=== PATIENT | female | born 1975 | race Caucasian/White ===

== ENCOUNTER 2020-02-04 00:30 | Outpatient (CLI) | payer OTHER, SELFPAY ==
[2020-02-04 18:51] LABS: SARS-CoV-2 RNA PCR Negative
== END 2020-02-04 00:31 | disposition home or self-care (01) ==
LOC: ANHCOVIDDT 00:30
PROVIDERS: PCP Family Medicine; Visit Provider Obstetrics & Gynecology
DX: Z01.818 Encounter for other preprocedural examination (principal); Z20.828 Contact with and (suspected) exposure to other viral communicable diseases
CPT/HCPCS: 87635; C9803; U0003

== ENCOUNTER 2020-02-04 14:45 | Outpatient (CLI) | payer OTHER, SELFPAY ==
--- NOTE | 2020-02-04 14:48 | ECG_ITS ---
Measurements Intervals King Rate: 78 P: 46 PA: 137 QRS: 16 QRSD: 80 T: 15 QT: 374 QTc: 427 Interpretive Statements SINUS RHYTHM RSR' IN V1 OR V2, PROBABLY NORMAL VARIANT BASELINE ARTIFACT- I, II, AVR, AVL, AVF BORDERLINE ECG Electronically Signed On 02-04-2020 15:09:08 PANTOGRAPH TRANSFERRER by Jerardo Fu D.O.
[2020-02-04 15:09] LABS: Basophils Absolute Auto 0.1 K/mm3 (0.0-0.1); Eosinophils Absolute Auto 0.4 K/mm3 (0-0.3); Eosinophils Percent Auto 4.1 % (0-4.4); Hematocrit 37.7 % (37.0-47.0); Hemoglobin 11.9 g/dL (12.0-15.0); Immature Granulocyte Absolute 0.03 K/mm3 (0.00-0.031); Immature Granulocyte Percent A 0.3 % (0-0.5); Lymphocytes Absolute Auto 2.35 K/mm3 (0.9-3.2); Lymphocytes Percent Auto 27.2 % (18.3-44.2); Mean Corpuscular HGB Conc 31.6 g/dl (32-36); Mean Corpuscular Hemoglobin 27.4 pg (26-34); Mean Corpuscular Volume 86.9 fl (80-100); Mean Platelet Volume 10.5 fl (7.4-10.4); Monocytes Absolute Auto 0.8 K/mm3 (0.1-0.6); Monocytes Percent Auto 9.1 % (2.6-8.5); Neutrophils Percent Auto 58.3 % (45.5-73.1); Platelet Count Result 306 k/mm3 (150-375); Red Blood Count 4.34 M/mm3 (4.2-5.4); White Blood Count 8.6 K/mm3 (4.5-10.0)
== END 2020-02-04 14:46 | disposition home or self-care (01) ==
LOC: ANHSURGERY 14:48
PROVIDERS: PCP Family Medicine; Visit Provider Obstetrics & Gynecology
DX: N81.4 Uterovaginal prolapse, unspecified (principal); I10 Essential (primary) hypertension; Z01.818 Encounter for other preprocedural examination; R94.31 Abnormal electrocardiogram [ECG] [EKG]
CPT/HCPCS: 36415; 85025; 86850; 86900; 86901; 93005

== ENCOUNTER 2020-02-07 00:44 | Day surgery (SDC) | payer OTHER, SELFPAY ==
[2020-01-31 16:59] VITALS: BMI 32.5
--- NOTE | 2020-02-05 09:51 | PM.IMHP ---
H&P: HPI History of Present Illness Date/Time: 02/05/20 09:51 Chief complaint: Uterine Prolapse/ Pelvic Pain/ Enlarged Uterus Narrative: Snehal Guevara is a 44 year old female was admitted for robotic total vaginal hysterectomy and bilateral salpingectomy. She has an enlarged uterus with uterine prolapse and pelvic pain. Risks and benefits reviewed including but not exclusive of , aspiration pneumonia, bleeding, transfusion, perforation injury to bowel, bladder, ureters, or other internal organs with need for open laparotomy and repair. She received the ACOG handout entitled hysterectomy as well as the de Palak handout. She had all questions answered. She asked to proceed Review of Systems Review of Systems: All systems reviewed & are unremarkable except as noted in HPI and below PMFSH Social History Social History Smoking status: Never smoker Second hand tobacco smoke exposure: No Spiritual care concerns: No Meds Home Medications and Allergies Home Medications Medication Instructions Recorded Confirmed Type lisinopril 10 mg PO DAILY 01/31/20 01/31/20 History venlafaxine 75 mg PO DAILY 01/31/20 01/31/20 History Allergies Allergy/AdvReac Type Severity Reaction Status Date / Time No Known Allergies Allergy Unverified 01/31/20 16:37 Exam Const: General: no acute distress Eyes: General: appearance normal, both eyes and all related structures Neck: Neck: supple and no JVD Thyroid: thyroid normal Resp: Effort & Inspection: normal respiratory effort Auscultation: clear to auscultation bilaterally Cardio: Rate: regular rate Rhythm: regular rhythm GI: Inspection: non-distended GI Palp: Yes Soft to palpation, No Tenderness to palpation present (GI) and No Guarding due to palpation present (GI) Auscultation: normal bowel sounds : General: Yes bladder normal to inspection External Female Exam: normal external appearance Speculum Exam - Vagina: normal appearance of the vagina Speculum Exam - Cervix: normal appearance of the cervix and Cervical os closed (prolapse) Bimanual exam- vagina & uterus: enlarged Bimanual Exam- Adnexa, other: no masses Skin: General skin exam: no rashes or lesions noted Extrem: General: normal to inspection and no edema Psych: Mental Status: mental status grossly normal Affect: normal affect Assessment and Plan Additional Plan impression: Uterine prolapse /enlarged uterus / pelvic pain Plan: Robotic total vaginectomy and bilateral salpingectomies
[2020-02-07] VITALS (18 sets, daily range): BP systolic 102–129; BP diastolic 49–83; PULSE 71–112; RESP 12–20; TEMP 36.2–37.4; O2SAT 94–100
--- NOTE | 2020-02-07 06:53 | WPDHPUPDATE1 ---
History and Physical Update Update Date/Time: 02/07/20 06:53 History and Physical has been reviewed, including an updated exam of the patient. There are NO changes in the patient's condition. Risks, benefits, and alternatives have been discussed and questions answered. Patient agrees to proceed with procedure.
[2020-02-07] MEDS: LACTATED RINGERS 1,000 ML 30 ML IV CONT ×3 (08:07→10:45)
[2020-02-07] MEDS: KETOROLAC 15 MG/ML VIAL (*BKC) IV PUSH (08:08)
[2020-02-07] MEDS: ACETAMINOPHEN 500 MG TABLET 1000 MG PO (08:09)
--- NOTE | 2020-02-07 08:17 | P.PNAN_ITS ---
Anes - Initial Pre Proc Eval Procedure: Operation Date: 02/07/20 09:30 Proposed Procedures p Robotic Assisted Total Vaginal Hysterectomy, Bilateral Salpingectomy - Ayden Villagomez MD Date/Time: 02/07/20 08:17 Surgeon: Ayden Villagomez MD Pre Op Diagnosis: Uterine Prolapse/ Pelvic Pain/ Enlarged Uterus Patient Data Age: 44 Gender: F Height: 5 ft 9 in Weight: 100 kg Last Vital Signs Temp 97.8 F 02/07/20 07:55 Pulse 92 02/07/20 07:55 Resp 16 02/07/20 07:55 BP 129/68 02/07/20 07:55 Pulse Ox 100 02/07/20 07:55 Allergies Allergy/AdvReac Type Severity Reaction Status Date / Time No Known Allergies Allergy Verified 02/07/20 07:40 Home Medications Medication Instructions Recorded Confirmed Type lisinopril 10 mg PO DAILY 01/31/20 02/07/20 History venlafaxine 75 mg PO DAILY 01/31/20 02/07/20 History hydrocodone-acetaminophen [[place]] 1 tablet PO Q4H PRN #30 tablet 02/07/20 Rx Patient hx anesthesia problems: none Family hx anesthesia problems: none PMFSH Past Medical History Medical History (Updated 02/07/20 @ 08:17 by Jayme Inman MD) Anxiety Hypertension Social History Social History Smoking status: Never smoker Second hand tobacco smoke exposure: No Living arrangements: with family Spiritual care concerns: No Anes - Eval Final PreProcedure Day of Procedure 02/07/20 08:17 Patient weight: overweight Heart: regular rate and rhythm Lungs: clear to auscultation Airway: Mallampati scale class II Neurological: alert and oriented Last oral intake: >/= 8 hours ASA classification: II Emergent: no Anesthetic plan: proceed Anesthesia type and monitoring: general ETT and standard monitoring Informed Consent: The patient's anesthetic plan and its attendant risks and benefits were discussed with the patient/family/POA. Questions were solicited and answers provided to the satisfaction of the patient/family/POA.
[2020-02-07] MEDS: ceFAZolin 2 GM/D5W 50 ML 2 GM/50 ML BAG IVPB (08:55)
--- NOTE | 2020-02-07 09:55 | P.OP_ITS ---
Procedure Note - Detailed Date of procedure: 02/07/20 Pre-op diagnosis: Uterine Prolapse/ Pelvic Pain/ Enlarged Uterus Surgeon: Ayden Villagomez MD Postop diagnosis: Uterine prolapse/pelvic pain/enlarged uterus Procedure: Robotic total vaginal hysterectomy and bilateral salpingectomies Anesthesia: General endotracheal EBL: 25cc Findings: Enlarged uterus. Normal-appearing ovaries. Tubes status post tubal ligation. Complications: None Description of procedure: The patient was prepped and draped in the normal sterile fashion and placed in the dorsal lithotomy position. Under excellent general endotracheal anesthesia weighted speculum was placed in posterior fornix of vagina. Anterior lip of the cervix grasped with a single-tooth tenaculum and the uterus sounded to 10cm. Serial dilatation with fragmented dilators performed. This was followed by passage of the 8. MANSOOR and the 3. Cold cup. Next the 16 Urdu catheter was placed. The remainder the instruments removed from the vagina. The gloves were changed. A supraumbilical incision made in the Veress needle passed in the abdomen. The abdomen filled with CO2 gas [id number]. The 8mm trocar advanced in the abdomen in the downside visualized. No injury seen the gas was reattached. The patient placed in Trendelenburg. Right left lateral quadrant incisions were made. The 8mm trocars were advanced under direct visualization assuring no injury. A right upper quadrant incision made and the 10mm trocar advanced under direct visualization assuring no injury. The robot was docked. Attention was turned to the middle school guidance counselor. The left round ligament was grasped, burned, cut. Anteriorly a bladder flap was formed by sharply dissecting the bladder away from the uterus in a caudal fashion to the opposite round ligament which was clamped, burned, cut. Next the fallopian tube on the left was dissected away from the ovary and brought to the level of its entrance in the uterus. This was repeated to remove the right tube. Next the left utero- ovarian ligament was skeletonized. This was clamped, burned, cut. This was brought to the level of previously cut round ligament. In like fashion the right utero-ovarian ligament was clamped, burned, cut and brought to the level of previously cut round ligament thus conserving the right ovary. The left cardinal and broad ligaments were serially skeletonized by sharply dissecting clamping cutting and burning down to the uterine vessels which were then individually clamped, burned, cut. In like fashion the cardinal and broad ligaments on the right were serially skeletonized. These were clamped, burned, cut. And brought to the level these were then brought to the level of the previously cut area. Uterine vessels were large tortuous as seen on the other side in the were individually clamped, burned, cut. Blanching the uterus was seen. A colpotomy incision was made and the uterus and cervix and tubes removed through the vagina. Blood loss estimated 25cc. The vagina was closed with running 0V lock from lateral edge to lateral edge and back to the midline. Irrigation undertaken to clear. The raw area was then sprinkled with [place] urine. Hemostasis was assured. The robot was undocked. The gas removed from the abdomen. The trocars removed from the abdomen. The incisions closed with 4 Monocryl glue. The patient was awakened. She went to recovery in satisfactory condition. All sponge, needle, instrument counts were correct. There were no immediate complications
[2020-02-07] MEDS: fentaNYL CITRATE INJ (*CRX) 100 MCG/2 ML VIAL 25 MCG IV PUSH ×10 (10:30→11:24)
--- NOTE | 2020-02-07 11:33 | PC.NURSE ---
This patient, Snehal Guevara, was received from nurse on 02/07/20 at 1133. Patient/family oriented to unit policies and routines
[2020-02-07] MEDS: DEXTROSE 5%/LACTATED RINGERS 1,000 ML 125 ML IV CONT (11:54)
[2020-02-07] MEDS: MORPHINE SULFATE (*CRX) 4 MG/ML INJ IV PUSH ×2 (11:55→16:16)
[2020-02-07] MEDS: KETOROLAC 30 MG/ML VIAL (*BKC) IV PUSH (14:16)
[2020-02-07] MEDS: DOCUSATE SODIUM 100 MG CAPSULE PO (16:16)
[2020-02-07] MEDS: HYDROcodone/acetaminophen (*CRX) 10-325 MG TABLET 1 TAB PO (19:33)
[2020-02-07] MEDS: IBUPROFEN 600 MG TABLET PO (19:34)
[2020-02-08] VITALS: BP 106/65; PULSE 89; RESP 18; TEMP 36.8; O2SAT 96
[2020-02-08] MEDS: HYDROcodone/acetaminophen (*CRX) 10-325 MG TABLET 1 TAB PO (00:49)
[2020-02-08] MEDS: HYDROcodone/acetaminophen (*CRX) 5-325 MG TABLET 1 TAB PO ×2 (05:32→08:09)
[2020-02-08] MEDS: IBUPROFEN 600 MG TABLET PO (05:33)
[2020-02-08 05:58] VITALS: BP 118/71; PULSE 100; RESP 18; TEMP 36.4; O2SAT 100
[2020-02-08 06:23] LABS: Basophils Absolute Auto 0.1 K/mm3 (0.0-0.1); Basophils Percent Auto 0.7 % (0.2-1.2); Eosinophils Absolute Auto 0.1 K/mm3 (0-0.3); Eosinophils Percent Auto 0.6 % (0-4.4); Hematocrit 30.6 % (37.0-47.0); Hemoglobin 9.7 g/dL (12.0-15.0); Immature Granulocyte Absolute 0.04 K/mm3 (0.00-0.031); Immature Granulocyte Percent A 0.4 % (0-0.5); Lymphocytes Absolute Auto 1.82 K/mm3 (0.9-3.2); Lymphocytes Percent Auto 20.2 % (18.3-44.2); Mean Corpuscular HGB Conc 31.7 g/dl (32-36); Mean Corpuscular Hemoglobin 27.9 pg (26-34); Mean Corpuscular Volume 87.9 fl (80-100); Mean Platelet Volume 10.8 fl (7.4-10.4); Monocytes Absolute Auto 0.8 K/mm3 (0.1-0.6); Monocytes Percent Auto 8.9 % (2.6-8.5); Neutrophils Absolute Auto 6.2 K/mm3 (1.3-6.7); Neutrophils Percent Auto 69.2 % (45.5-73.1); Platelet Count Result 248 k/mm3 (150-375); Red Blood Count 3.48 M/mm3 (4.2-5.4); Red Cell Distribution Width 14.1 % (11.5-14.5)
[2020-02-08 08:00] VITALS: BP 115/75; PULSE 95; RESP 18; TEMP 36.8; O2SAT 100
[2020-02-08] MEDS: DOCUSATE SODIUM 100 MG CAPSULE PO (08:08)
[2020-02-08] MEDS: ENOXAPARIN 40 MG/0.4 ML SYRINGE SUB-Q (08:09)
--- NOTE | 2020-02-08 09:16 | PM.GYNPNOP ---
COIN MACHINE COLLECTOR - A/P Postoperative Procedures: Procedures Operation Date: 02/07/20 09:30 Actual Procedures Side Surgeon p Robotic Assisted Total Vaginal Hysterectomy, Bilateral Salpingectomy Ayden Villagomez MD Time Spent With Patient Time with patient: less than 15 minutes COIN MACHINE COLLECTOR- PN:Subj Post-Op Subjective Date/time seen: 02/08/20 09:16 Interval history: Pain OK. Tolerating diet. Voiding. Would like to go home. Exam Narrative: Exam Narrative: AVSS I/O OK ABD soft, nontender. Incisions c/d/i. EXT nontender COIN MACHINE COLLECTOR - PN: Obj Data Vital Signs Vital Signs: Vital Signs - 24 hr 02/07/20 10:05 02/07/20 10:15 02/07/20 10:30 Temperature 36.2 C L Pulse Rate 78 86 74 Respiratory Rate 12 20 12 Blood Pressure 112/52 L 108/55 L 115/62 Pulse Oximetry 100 100 97 02/07/20 10:45 02/07/20 11:00 02/07/20 11:15 Temperature Pulse Rate 71 91 94 Respiratory Rate 12 12 13 Blood Pressure 117/83 103/51 L 103/65 Pulse Oximetry 96 96 95 02/07/20 11:21 02/07/20 11:46 02/07/20 12:00 Temperature 37.2 C Pulse Rate 72 73 81 Respiratory Rate 13 18 18 Blood Pressure 109/52 L 102/49 L 105/53 L Pulse Oximetry 99 100 100 02/07/20 12:15 02/07/20 12:30 02/07/20 13:00 Temperature 36.7 C Pulse Rate 79 96 82 Respiratory Rate 18 18 18 Blood Pressure 104/49 L 104/51 L 109/58 L Pulse Oximetry 94 94 97 02/07/20 13:30 02/07/20 14:00 02/07/20 15:00 Temperature 37.3 C Pulse Rate 84 92 98 Respiratory Rate 18 18 18 Blood Pressure 105/59 L 109/60 116/64 Pulse Oximetry 96 98 99 02/07/20 16:00 02/07/20 19:55 02/08/20 00:00 Temperature 37.4 C 36.2 C L 36.8 C Pulse Rate 92 112 H 89 Respiratory Rate 16 16 18 Blood Pressure 103/58 L 114/58 L 106/65 Pulse Oximetry 97 96 96 02/08/20 05:58 Temperature 36.4 C L Pulse Rate 100 Respiratory Rate 18 Blood Pressure 118/71 Pulse Oximetry 100 Intake/Output Intake/Output: Intake & Output 02/05/20 02/06/20 02/07/20 02/08/20 23:59 23:59 23:59 23:59 Intake Total 3524 800 Output Total 475 2500 Balance 3049 -1700 Meds/Results Medications: Active Medications Generic Name Dose Route Start Last Admin Trade Name Freq PRN Reason Stop Dose Admin Hydrocodone Bitart/Acetaminophen 1 tab 02/07/20 11:25 02/08/20 08:09 Hydrocodone/Acetaminophen (*Crx) 5-325 Mg Tablet PO 1 tab Q3H PRN Administration Pain Rated 5 or Less Hydrocodone Bitart/Acetaminophen 1 tab 02/07/20 11:25 02/08/20 00:49 Hydrocodone/Acetaminophen (*Crx) 10-325 Mg Tablet PO 1 tab Q3H PRN Administration Pain Rated 6 or Greater Docusate Sodium 100 mg 02/07/20 17:00 02/08/20 08:08 Docusate Sodium 100 Mg Capsule PO 100 mg BID JENNIE Administration Enoxaparin Sodium 40 mg 02/08/20 09:00 02/08/20 08:09 Enoxaparin 40 Mg/0.4 Ml Syringe SUB-Q 40 mg DAILY JENNIE Administration Dextrose/Lactated Ringer's 1,000 mls @ 125 mls/hr 02/07/20 11:25 02/08/20 04:13 Dextrose 5%/Lactated Ringers IV CONT Not Given .Q8H JENNIE Ibuprofen 600 mg 02/07/20 11:25 02/08/20 05:33 Ibuprofen 600 Mg Tablet PO 600 mg Q6H PRN Administration Cramping Ketorolac Tromethamine 30 mg 02/07/20 11:25 02/07/20 14:16 Ketorolac 30 Mg/Ml Vial (*Bkc) IV PUSH 02/12/20 11:26 30 mg Q6H PRN Administration Pain Rated 4-6 Morphine Sulfate 4 mg 02/07/20 11:25 02/07/20 16:16 Morphine Sulfate (*Crx) 4 Mg/Ml Inj IV PUSH 4 mg Q4H PRN Administration Severe breakthrough pain Naloxone HCl 0.1 mg 02/07/20 11:25 Naloxone Hcl 0.4 Mg/Ml Vial IV PUSH Q2M PRN Respiratory rate less than 10 Ondansetron HCl 4 mg 02/07/20 11:25 Ondansetron Inj 4 Mg/2 Ml Vial IV PUSH Q6H PRN Nausea And Vomiting Simethicone 80 mg 02/07/20 11:25 Simethicone 80 Mg Tab.Chew PO Q2H PRN Gas Labs CBC & Chem 7: 02/08/20 05:32 Labs: Laboratory Results - last 24 hr 02/08/20 05:32 WBC 9.0 RBC 3.48 L Hgb 9.7 L
--- NOTE | 2020-02-08 09:18 | PM.DS ---
DS: Admitting Diagnosis Admitting Diagnosis Admitting Diagnosis: Uterine Prolapse/ Pelvic Pain/ Enlarged Uterus DS: Discharge Diagnosis Discharge Diagnosis (1) Status post robot-assisted surgical procedure: Code(s): Z98.890 - Other specified postprocedural states Status: Acute DS: Data Data Completed and Pending Pending studies at discharge: Pending at discharge 02/07/20 09:20 Surgical [PTH] Routine Labs on day of discharge: Labs from last 24 hours 02/08/20 05:32 WBC 9.0 RBC 3.48 L Hgb 9.7 L Hct 30.6 L MCV 87.9 MCH 27.9 MCHC 31.7 L RDW 14.1 Plt Count 248 MPV 10.8 H Immature Gran % (Auto) 0.4 Neut % (Auto) 69.2 Lymph % (Auto) 20.2 [place] % (Auto) 8.9 H Eos % (Auto) 0.6 Baso % (Auto) 0.7 Lymph # (Auto) 1.82 [place] # (Auto) 0.8 H Eos # (Auto) 0.1 Baso # (Auto) 0.1 Abs Immat Gran (auto) 0.04 H Absolute Neuts (auto) 6.2 Absolute Nucleated RBC 0.0 Nucleated RBC % 0.0 Discharge Plan Discharge Patient Disposition: Home, Self-Care Patient Instructions: Laparoscopic Hysterectomy (DC) Stand Alone Forms: General Discharge Instructions Follow-up/Referrals: Ayden Villagomez MD [Physician] - Discharge Medications: New hydrocodone-acetaminophen [[place]] 5-325 mg tablet 1 tablet PO Q4H PRN (Reason: pain) Qty: 30 RF: 0 No Action venlafaxine 75 mg capsule,extended release 24hr 75 mg PO DAILY RF: 0 lisinopril 10 mg tablet 10 mg PO DAILY RF: 0
== END 2020-02-08 10:28 | disposition home or self-care (01) ==
LOC: ANHSURGERY 07:34 → ANHOB2 11:27
PROVIDERS: PCP Family Medicine; Visit Provider Obstetrics & Gynecology
PROC: (CPT 58552; principal; 2020-02-07 09:30)
DX: N81.4 Uterovaginal prolapse, unspecified (principal); R10.2 Pelvic and perineal pain; N80.0 Endometriosis of uterus; N70.11 Chronic salpingitis; N83.8 Other noninflammatory disorders of ovary, fallopian tube and broad ligament; Z23 Encounter for immunization; I10 Essential (primary) hypertension; F41.9 Anxiety disorder, unspecified
CPT/HCPCS: 58552; S2900; 36415; 85025; 88307; 90471; 90653; 99199; A9270; G0008; J0690; J1100; J1170; J1650; J1885; J2250; J2270; J2405; J2704; J2710; J3010; J7030; J7120; J7121

== ENCOUNTER 2024-12-25 15:23 | Outpatient (CLI) | payer OTHER, SELFPAY ==
--- OUTSIDE RECORDS SUMMARY | 2023-12-01 03:30 | XMS_ITS ---
Author Organization [facility] Address [address] [place] [address] Care Team Providers Care Senior Project Controls Specialist Name Role Phone Nancy ARRIETA, Mary Primary Care Provider Unavaildonald KIM MD, ADVID Unavailable REASON FOR VISIT Colon Encounters Encounter Location Date Provider Diagnosis [facility] [address] [place] [address] 12/01/2023 DAVID KIM Plan Of Treatment No Information Progress Notes * Sofie GUEVARAB:1975 (49 yo F)Acc No.[id number]:12/01/2023 Patient: Snehal DIXON Provider: Bertram Kim MD, FASGE :1975 A ge:48 Y S ex:Female Date:12/01/2023 [facility] Pcp:Mary Cruz MD * * Electronic signature of DREAD KIM MD, MD on 12/25/2024 at 06:25 PM EDT Sign off status: Pending * Provider: Bertram Kim MD, FASGE Date: Generated for Katia trotter/Steven/eTransmitting on: 06:25 PM EDT
--- OUTSIDE RECORDS SUMMARY | 2024-12-25 17:25 | XMS_ITS | Clinical Summary ---
Author Organization [facility] Address [address] [place] [id number] Care Team Providers Care Division Leader Name Role Phone Mary Cruz MD Primary Care Provider [phone] Dasia Mann MD Unavailable Allergies No known active allergies Medications methyldopa (ALDOMET) 250 mg tablet 9 Active venlafaxine XR (EFFEXOR-XR) 37.5 mg 24 hr capsule CURRENTLY BEING WEENED OFF 1 Active lisinopriL (PRINIVIL,ZESTR IL) 10 mg tablet 1 Active cyclobenzaprine (FLEXERIL) 10 mg tablet Take 1 tablet (10 mg total) by mouth 3 (three) times a day as needed for muscle spasms Active Active Problems Problem Noted Date Diagnosed Date Morbid obesity 11/14/2018 Encounters Date Type Department Care Team Description 12/09/2024 3:45 PM CDT - 12/09/2024 11:59 PM CDT Hospital Encounter [facility] [address] [place] [address] Hematuria, unspecified type Discharge Disposition: Discharge to home or self care 12/03/2024 2:21 PM CDT - 12/03/2024 11:59 PM CDT Hospital Encounter [facility] Pain [facility]mt [address] [place] [id number] Dasia Mann MD Bulge of lumbar disc without myelopathy (Primary Dx); Neural foraminal stenosis of lumbar spine; Radiculopathy, lumbar region Discharge Disposition: Discharge to home or self care 11/01/2024 3:53 PM CDT - 11/01/2024 11:59 PM CDT Hospital Encounter [facility] MRI [address] [place] [address] Radiculopathy, lumbar region Discharge Disposition: Discharge to home or self care 10/08/2024 10:38 AM CDT - 10/08/2024 11:59 PM CDT Hospital Encounter [facility] Breast Imaging [address] [place] [address] Encounter for screening mammogram for malignant neoplasm of breast Discharge Disposition: Discharge to home or self care from Last 3 Months Surgical History Surgery Date Site/Laterality Comments LAPAROSCOPY TUBAL LIGATION HYSTERECTOMY 12/29/2019 - 01/27/2020 partial Medical History Medical History Date Comments Obesity Hypertension Anxiety Difficulty swallowing GERD (gastroesophageal reflux disease) Family History Medical History Relation Name Comments Anxiety disorder Brother Cancer Father Diabetes Father Heart disease Father Hypertension Father Anxiety disorder Mother Chronic Pain Mother Depression Mother Hypertension Mother Obesity Mother Cancer Other grandparents Diabetes Other grandparents Heart disease Other grandparents Hypertension Other grandparents Stroke Other grandparents Breast cancer Neg Hx Ovarian cancer Neg Hx Relation Name Status Comments Brother Father Mother Other grandparents Alive Social History Tobacco Use Types Packs/Day Years Used Date Smoking Tobacco: Never Smokeless Tobacco: Never Tobacco Cessation:Counseling Given: Not Answered Alcohol Use Standard Drinks/Week Comments Not Currently 0 (1 standard drink = 0.6 oz pur e alcohol) Comments No Sex and Gender Information Value Date Recorded Sex Assigned at Not on file 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 Gender Identity Not on file Sexual Orientation Not on file Obstetrics History Para Term AB IAB SAB Ectopic Multiple Livin g Live Births 4 4 4 Date Outcome GA Total Labor Labor/2nd/3rd Weight Sex Type Anes PTL Nereida A1 A5 Name Clin Term Term Term Term Last Filed Vital Signs Vital Sign Reading Time Taken Comments Blood Pressure 132/84 12/03/2024 2:32 PM CDT Pulse 78 12/03/2024 2:32 PM CDT Temperature 36.8 C (98.3 F) 11/14/2018 9:17 AM CDT Respiratory Rate 18 12/03/2024 2:32 PM CDT Oxygen Saturation 99% 12/03/2024 2:32 PM CDT Inhaled Oxygen Concentration - - Weight 106.6 kg (235 lb 1.6 oz) 12/03/2024 2:32 PM CDT Height 172.7 cm (5' 8) 12/03/2024 2:32 PM CDT Body Mass Index 35.75 12/03/2024 2:32 PM CDT Plan of Treatment Health Maintenance Due Date Last Done Comments Colon Cancer Screening-Colonoscopy 1976 Depression Screening 1975 Hepatitis C Screening 1976 DTaP/Tdap/Td Vaccine (1 - Tdap) 02/12/1987 Hepatitis B Screening 02/12/1994 Regular Well Visit/Exam 18-64 02/12/1994 Influenza Vaccine (#1) 2024 12/17/2018 Breast Cancer Screening-Mammogram 10/08/2025 10/08/2024, 09/30/2023, 09/21/2022, Additional history exists Pneumococcal vaccine <65 Aged Out No longer eligible based on patient's age to complete this topic Procedures Procedure Name Priority Date/Time Associated Diagnosis Comments CT ABDOMEN PELVIS W CONTRAST Schedule ROLANDO, Read ROLANDO (Appt Today, Awaiting Results) 12/09/2024 4:14 PM CDT Hematuria, unspecified type MRI LUMBAR SPINE WO CONTRAST Schedule Routine, Read Routine (OP Routine) 11/01/2024 5:12 PM CDT Radiculopathy, lumbar region SCREENING MAMMOGRAM BILATERAL W PAOLO Schedule Routine, Read Routine (OP Routine) 10/08/2024 10:59 AM CDT Encounter for screening mammogram for malignant neoplasm of breast from Last 3 Months Results * CT Abdomen Pelvis W Contrast (12/09/2024 4:14 PM CDT) Anatomical Region Laterality Modality Body N/A Computed Tomogra phy 12/09/2024 8:43 PM CDT Narrative 12/09/2024 8:48 PM CDT EXAM DESCRIPTION: CT ABDOMEN PELVIS W CONTRAST REASON FOR STUDY: R31.9 Hematuria TECHNIQUE: CT scan of the abdomen and pelvis performed with intravenous and without oral contrast using helical scanning technique with dynamic intravenous contrast injection. Reconstructed coronal and sagittal MPR images reviewed. All images stored on PACS. Automated exposure control was used as a dose optimization technique for this examination. CONTRAST TYPE/DOSE: 100mL of IOVERSOL 350 MG IODINE/ML INTRAVENOUS SYRINGE injected via intravenous COMPARISON: 04/30/2019 FINDINGS: LOWER CHEST: No significant pulmonary abnormalities. No effusion. LIVER: Normal size. No identified cystic or solid masses. GALLBLADDER: No stones identified. No wall thickening or inflammatory changes. BILE DUCTS: No intrahepatic or extrahepatic ductal dilatation. SPLEEN: Normal size. No focal lesions. PANCREAS: No identified cystic or solid masses. No significant calcifications. No adjacent inflammation or peripancreatic fluid collections. Pancreatic duct not dilated. ADRENALS: Normal. KIDNEYS/URINARY TRACT: No identified significant cystic or solid masses. 3 mm nonobstructing stone lower pole right kidney. There is no evidence of hydronephrosis, but there is a 6 mm stone in the distal right ureter located just above the right ureterovesical junction on axial image 133. Symmetric enhancement. Urinary bladder is unremarkable. GI: No dilated bowel loops. No obvious wall thickening. Normal appendix. No significant diverticular disease. PERITONEUM: Trace free fluid within the pelvis. No evidence of free air. RETROPERITONEUM: No mass or adenopathy. REPRODUCTIVE: 4.4 cm x 3.3 cm septated cystic lesion on the left ovary. This finding would be better evaluated with pelvic ultrasound if clinically indicated. VASCULATURE: No abdominal aortic aneurysm. MUSCULOSKELETAL: No significant abnormality. OTHER: Small periumbilical hernia containing only fat. IMPRESSION: 1. 6 mm stone in the distal right ureter located just above the right ureterovesical junction. No evidence of hydronephrosis. 2. 3 mm nonobstructing stone right kidney. 3. 4.4 cm x 3.3 cm septated cystic lesion on the left ovary. This finding would be better evaluated with pelvic ultrasound. THIS IS AN ELECTRONICALLY VERIFIED FINAL REPORT 12/09/2024 8:48 PM - Electronically signed by Clarence Mendez M.D. KT: HAZEL Report ID: [id number] Reading Location: [id number] Procedure Note Clarence Mendez MD - 12/09/2024 EXAM DESCRIPTION: CT ABDOMEN PELVIS W CONTRAST REASON FOR STUDY: R31.9 Hematuria TECHNIQUE: CT scan of the abdomen and pelvis performed with intravenousand without oral contrast using helical scanning technique with dynamic intravenous contrast injection. Reconstructed coronal and sagittal MPRimages reviewed. All images stored on PACS. Automated exposure control was usedas a dose optimization technique for this examination. CONTRAST TYPE/DOSE: 100mL of IOVERSOL 350 MG IODINE/ML INTRAVENOUSSYRINGE injected via intravenous COMPARISON: 04/30/2019 FINDINGS: LOWER CHEST: No significant pulmonary abnormalities. Noeffusion. LIVER: Normal size. No identified cystic or solid masses. GALLBLADDER: No stones identified. No wall thickening or inflammatory changes. BILE DUCTS: No intrahepatic or extrahepatic ductal dilatation. SPLEEN: Normal size. No focal lesions. PANCREAS: No identified cystic or solid masses. No significant calcifications. No adjacent inflammation or peripancreatic fluidcollections. Pancreatic duct not dilated. ADRENALS: Normal. KIDNEYS/URINARY TRACT: No identified significant cystic or solid masses.3 mm nonobstructing stone lower pole right kidney. There is no evidence of hydronephrosis, but there is a 6 mm stone in the distal right ureterlocated just above the right ureterovesical junction on axial image 133.Symmetric enhancement. Urinary bladder is unremarkable. GI: No dilated bowel loops. No obvious wall thickening. Normalappendix. No significant diverticular disease. PERITONEUM: Trace free fluid within the pelvis. No evidence of freeair. RETROPERITONEUM: No mass or adenopathy. REPRODUCTIVE: 4.4 cm x 3.3 cm septated cystic lesion on the left ovary. This finding would be better evaluated with pelvic ultrasound ifclinically indicated. VASCULATURE: No abdominal aortic aneurysm. MUSCULOSKELETAL: No significant abnormality. OTHER: Small periumbilical hernia containing only fat. IMPRESSION: 1. 6 mm stone in the distal right ureter located just above the right ureterovesical junction. No evidence of hydronephrosis. 2. 3 mm nonobstructing stone right kidney. 3. 4.4 cm x 3.3 cm septated cystic lesion on the left ovary. Thisfinding would be better evaluated with pelvic ultrasound. THIS IS AN ELECTRONICALLY VERIFIED FINAL REPORT 12/09/2024 8:48 PM - Electronically signed by Clarence Mendez M.D. KT: HAZEL Report ID: [id number] Reading Location: [place] [address] [place] Farida Disla POLICE RADIO DISPATCHER IMG CT PROCEDURES Final Result * MRI Lumbar Spine WO Contrast (11/01/2024 5:12 PM CDT) Anatomical Region Laterality Modality Spine N/A Magnetic Resonan ce 11/04/2024 7:47 AM CDT Narrative 11/04/2024 7:52 AM CDT EXAM DESCRIPTION: MRI LUMBAR SPINE WO CONTRAST REASON FOR STUDY: radiculopathy Chronic low back pain TECHNIQUE: Sagittal and Axial imaging includes T1, T2, STIR sequences. COMPARISON: Lumbar spine radiographs dated 03/09/2023 and relevant portions of the CT abdomen and pelvis dated 04/30/2019. FINDINGS: SEGMENTATION: For the purpose dictation assumption is made for the last well-formed disc space seen on series 801, image 8 to be labeled L5-S1. In this system of nomenclature there are hypoplastic 12th ribs. Elongated left transverse process of L5 pseudo articulates with austyn sacrum. If a surgical or therapeutic intervention is considered then recommend imaging of the complete spinal axis to accurately delineate the vertebral levels. ALIGNMENT: Anterior-posterior alignment is maintained. VERTEBRAE: There is no acute compression fracture in the lumbar spine. Multilevel endplate degenerative changes with marginal spur formation, most noticeable at L5-S1. Mid to lower lumbar predominant facet arthropathy. DISC HEIGHT: Multilevel disc desiccation and height loss, most noticeable at L5-S1. HARDWARE: None in the spine. CORD/CAUDA: Conus medullaris terminates at L1. LOWER THORACIC: Incompletely imaged. No high-grade spinal canal stenosis. L1-L2: No significant disc bulge, spinal canal or neural foraminal narrowing. L2-L3: Minor disc bulge with facet arthropathy. No significant spinal canal or neural foraminal narrowing. L3-L4: Disc bulge eccentric to the left neural foramen. Bilateral facet arthropathy. No significant spinal canal or right neural foraminal narrowing. Mild left neural foraminal narrowing. L4-L5: Mild disc bulge with bilateral facet arthropathy. Flattening of the ventral thecal sac. No significant neural foraminal narrowing. L5-S1: Disc bulge with marginal spur formation. Superimposed central/left subarticular disc protrusion abuts the descending left S1 nerve root and approaches the descending right S1 nerve root. Bilateral facet arthropathy. Mild left ventral spinal canal stenosis. Mild bilateral neural foraminal narrowing. SACRUM: The S1 and S2 segment rounded T1 and T2 hyperintense signal in keeping with an intraosseous hemangioma. IMPRESSION: 1. Lumbar spine nomenclature as above. 2. Baoe-he-swetfeef lumbar degenerative changes as described. There is no high-grade spinal canal stenosis. 3. Lateral recess narrowing is most noticeable on the left at L5-S1. 4. Neural foraminal stenosis and additional findings as discussed. THIS IS AN ELECTRONICALLY VERIFIED FINAL REPORT 11/04/2024 7:52 AM - Electronically signed by Art Mcarthur D.O. AP T: Report ID: [id number] Reading Location: [place] [id number] Procedure Note Art Mcarthur, DO - 11/04/2024 EXAM DESCRIPTION: MRI LUMBAR SPINE WO CONTRAST REASON FOR STUDY: radiculopathy Chronic low back pain TECHNIQUE: Sagittal and Axial imaging includes T1, T2, STIR sequences. COMPARISON: Lumbar spine radiographs dated 03/09/2023 [address] relevant[address] of the CT abdomen and pelvis dated 04/30/2019. FINDINGS: SEGMENTATION: For the purpose dictation assumption is made forthe last well-formed disc space seen on series 801, image 8 to be labeledL5-S1. In this system of nomenclature there are hypoplastic 12th ribs. Elongated left transverse process of L5 pseudo articulates with austyn sacrum. If a surgical or therapeutic intervention is considered then recommend imagingof the complete spinal axis to accurately delineate the vertebral levels. ALIGNMENT: Anterior-posterior alignment is maintained. VERTEBRAE: There is no acute compression fracture in the lumbar spine. Multilevel endplate degenerative changes with marginal spur formation,most noticeable at L5-S1. Mid to lower lumbar predominant facet arthropathy. DISC HEIGHT: Multilevel disc desiccation and height loss, mostnoticeable at L5-S1. HARDWARE: None in the spine. CORD/CAUDA: Conus medullaris terminates at L1. LOWER THORACIC: Incompletely imaged. No high-grade spinal canalstenosis. L1-L2: No significant disc bulge, spinal canal or neural foraminalnarrowing. L2-L3: Minor disc bulge with facet arthropathy. No significant spinalcanal or neural foraminal narrowing. L3-L4: Disc bulge eccentric to the left neural foramen. Bilateral facet arthropathy. No significant spinal canal or right neural foraminalnarrowing. Mild left neural foraminal narrowing. L4-L5: Mild disc bulge with bilateral facet arthropathy. Flattening ofthe ventral thecal sac. No significant neural foraminal narrowing. L5-S1: Disc bulge with marginal spur formation. Superimposed central/left subarticular disc protrusion abuts the descending left S1 nerve root and approaches the descending right S1 nerve root. Bilateral facetarthropathy. Mild left ventral spinal canal stenosis. Mild bilateral neural foraminal narrowing. SACRUM: The S1 and S2 segment rounded T1 and T2 hyperintense signal in keeping with an intraosseous hemangioma. IMPRESSION: 1. Lumbar spine nomenclature as above. 2. Buur-hd-meskwiqw lumbar degenerative changes as described. There isno high-grade spinal canal stenosis. 3. Lateral recess narrowing is most noticeable on the left at L5-S1. 4. Neural foraminal stenosis and additional findings as discussed. THIS IS AN ELECTRONICALLY VERIFIED FINAL REPORT 11/04/2024 7:52 AM - Electronically signed by Art ANG T: Report ID: [id number] Reading Location: [id number] Mary Cruz MD IMG MRI PROCEDURES Final Resul t * Screening Mammogram Bilateral W Paolo (10/08/2024 10:59 AM CDT) Anatomical Region Laterality Modality Breast Bilateral Mammography Impressions 10/08/2024 11:52 AM CDT Bilateral No evidence of malignancy in either breast. OVERALL BI-RADS FINAL ASSESSMENT: 1 - Negative RECOMMENDATION: Recommend bilateral annual screening mammography. Narrative 10/08/2024 11:52 AM CDT EXAMINATION: Screening Mammogram Bilateral W Paolo: 10/08/2024 COMPARISON: Relevant prior studies available at the time of interpretation were reviewed, including the most recent mammogram on: 09/30/2023. TECHNIQUE: Mammography was performed with 2D and 3D digital breast tomosynthesis (DBT) images. CAD was utilized. BREAST PARENCHYMAL COMPOSITION: The breasts are almost entirely fatty. FINDINGS: Bilateral There is no suspicious mass, calcification, or architectural distortion in either breast. Mary Cruz MD IMG MAMMO PROCEDURES Final Res ult from Last 3 Months Insurance [facility] CHOICE PLUS [facility] CHOICE PLUS [facility] CHOICE PLUS Care Teams Division Leader Relationship Specialty Start Date End Date Mary Cruz MD [address] [address] PCP - General Family Medicine 10/01/18 Dasia Mann MD [address] [facility] [address] [place] [phone] Consulting Physician Pain Management 12/03/24
--- OUTSIDE RECORDS SUMMARY | 2024-12-25 17:25 | XMS_ITS | Patient Health Record ---
Author Organization [facility] Address [address] [place] [address] Care Team Providers Care Warranty Administrator Name Role Phone Nancy ARRIETA, Mary Primary Care Provider Niyah KIM MD, DAVID Unavailable Reason For Referral No Information Plan Of Treatment No Information Insurance Providers Payer Name Payer Address Payer Phone Subscriber Number Group Number Insured Name Patient Relationship to Insured Coverage Start Date Coverage End Date [facility] [employer] [address] [address] [place] [address] [id number] Snehal Guevara Self - patient is the insured
--- OUTSIDE RECORDS SUMMARY | 2024-12-25 17:25 | XMS_ITS | Clinical Summary ---
Author Organization [facility] Address [address] [place] [address] Care Team Providers Care Regional Recruiter Name Role Phone Mary Cruz MD Primary Care Provider [phone] Allergies No known active allergies Medications venlafaxine XR 75 MG 24 hr capsule 11/23/2020 Ac tive lisinopril 10 MG tablet 11/16/2020 Active Social History Tobacco Use Types Packs/Day Years Used Date Smoking Tobacco: Never Alcohol Use Standard Drinks/Week Comments Not Currently 0 (1 standard drink = 0.6 oz pur e alcohol) Comments No Sex and Gender Information Value Date Recorded Sex Assigned at Not on file Legal Sex Female 7:29 PM CDT Gender Identity Not on file Sexual Orientation Not on file Last Filed Vital Signs Vital Sign Reading Time Taken Comments Blood Pressure 134/93 11/28/2020 3:29 PM CDT Pulse 92 11/28/2020 2:07 PM CDT Temperature 36.4 C (97.6 F) 11/28/2020 2:09 PM CDT Respiratory Rate 18 11/28/2020 2:07 PM CDT Oxygen Saturation 100% 11/28/2020 2:07 PM CDT Inhaled Oxygen Concentration - - Weight 99.8 kg (220 lb) 11/28/2020 2:07 PM CDT Height 172.7 cm (5' 8) 11/28/2020 2:07 PM CDT Body Mass Index 33.45 11/28/2020 2:07 PM CDT Plan of Treatment Health Maintenance Due Date Last Done Comments Cervical Cancer Screening Pa p Smear (Age 30 to 64) Every 3 Years 1976 Colorectal Cancer Screening Colonoscopy (10 Years) 1976 Annual Physical 02/12/1979 Hepatitis C 02/12/1994 DTaP, Tdap and Td Vaccines ( 1 - Tdap) 02/12/1995 Hepatitis B Vaccines (1 of 3 - 19+ 3-dose series) 02/12/1995 Cervical Cancer Screening Pa chika with HPV Testing (Age 30 to 64) Every 5 Years 02/12/2006 Cervical Cancer Screening with HPV 02/12/2006 Mammogram Screening 2016 COVID-19 Vaccine (2 - 2024-2 6 season) 2024 05/05/2020 Influenza Adult (#1) 2024 Hepatitis A Vaccines Aged Out No long er eligible based on patient's age to complete this topic Meningococcal B Vaccine Aged Out No l onger eligible based on patient's age to complete this topic Meningococcal Vaccine Aged Out No francis emiliano eligible based on patient's age to complete this topic Pneumococcal Vaccine: Pediat rics (0 to 5 Years) and At-Risk Patients (6 to 49 Years) Aged Out No longer eligi ble based on patient's age to complete this topic RSV Immunizations Under 20 Months Aged Out No longer eligible based on patient's age to complete this topic Insurance [employer] Care Teams Regional Recruiter Relationship Specialty Start Date End Date Mary Cruz MD PCP - General 02/07/14
== END 2024-12-25 15:24 | disposition home or self-care (01) ==
LOC: ANHSURGERY 15:24
PROVIDERS: PCP Family Medicine; Visit Provider Obstetrics & Gynecology
DX: N83.202 Unspecified ovarian cyst, left side (principal)
CPT/HCPCS: 36415; 86850; 86900; 86901

== ENCOUNTER 2024-12-27 00:53 | Day surgery (SDC) | payer OTHER, SELFPAY ==
--- OUTSIDE RECORDS SUMMARY | 2023-12-01 03:30 | XMS_ITS ---
Author Organization [facility] Address [address] [place] [address] Care Team Providers Care Deputy Clerk Of Superior Court Name Role Phone Nancy ARRIETA, Mary Primary Care Provider Unavaildonald KIM MD, DAVID Unavailable [phone] REASON FOR VISIT Colon Encounters Encounter Location Date Provider Diagnosis [facility] [address] [place] [address] 12/01/2023 DAVID KIM Plan Of Treatment No Information Progress Notes * Sofie GUEVARAB:1975 (49 yo F)Acc No.[id number]:12/01/2023 Patient: Snehal DIXON Provider: Bertram Kim MD, FASGE :1975 A ge:48 Y S ex:Female Date:12/01/2023 Address: [facility] Pcp:Mary Cruz MD * * Electronic signature of DRAED KIM MD, MD on 12/27/2024 at 01:56 AM EDT Sign off status: Pending * Provider: Bertram Kim MD, FASGE Date: Generated for Katia trotter/Steven/eTransmitting on: 01:56 AM EDT
--- NOTE | 2024-12-26 16:29 | SUR.PREOP ---
[facility] has started construction of its new state of the art ER which will open Spring 2026. With this, we anticipate parking may be a challenge for some our surgical patients and families. Parking spaces are limited but are available for all Surgical, obstetrics, and ER patients sharing this lot. If you arrive and find you are having a hard time finding a parking space, please note that we understand the challenges, please drive around the hospital and park near Hospital Entrance 1. When you enter this entrance, you can ask a volunteer to direct or take you back to the surgical waiting area to check in. We appreciate everyone?s understanding of these expected challenges while we build for your future. Report to the Outpatient Waiting Room, entrance under the green pavilion located off [address], at time _0915AM__ on date _12/27/24__. Planned Procedure Time: _1115AM__.? Time changes happen often and if your time is changed the preop area will call you the afternoon before. - You and your visitor will be asked to self-screen and do not enter if you have any COVID symptoms. Please call surgeon if you need to reschedule. - A mask is optional within the hospital at this time. Patients may have clear liquids (water, carbonated beverages, clear teas, apple juice) until 3 hours prior to surgery with a maximum of 20 ounces. - No food from midnight until time of surgery and no smoking, or chewing tobacco (or any form of nicotine). No chewing gum, candy or mints. Take only the following medications with a SIP of water on the morning of surgery: ___acetaminophen 300/30 codeine tab if needed DO NOT STOP ANY OF YOUR OTHER PRESCRIPTION MEDICATIONS PRIOR TO SURGERY EXCEPT THE FOLLOWING Hold all vitamins and supplements for 3 days per anesthesiologist. Medications to discontinue per physician __none__ Date to take last dose___n/a___ Please no make-up, nail cameroonian, hairspray, perfume, deodorant, or body powder the day of surgery.? No jewelry (including any body piercings) or valuables the day of surgery, leave them at home.? Please take a shower or bath the night before, or the morning of, surgery with an antibacterial soap.? Wear comfortable, loose fitting clothing.?. - Jewelry must be removed prior to entering the operating room.? Rings and piercings that are not removed may be cut off. - The hospital will not accept responsibility for valuables.? - Please leave all valuables, including medications, at home the day of surgery. If you are going home after surgery, a licensed piledriver carpenter must drive you home.? - NO public transportation without another adult if you receive anesthesia. - We recommend that an adult stay with you for 24 hours following discharge. - We also recommend that you do not drive, make important decision, drink alcoholic beverages, or take any drugs that were not prescribed by your health care provider for at least 24 hours after your discharge time. For Pediatric surgeries, we recommend two adults accompany the child home. Follow any additional instructions given to you from your surgeon. Telephone instructions given to __Snehal___and asked if any additional questions and then verbalized understanding. Patient advised to call surgeon office or pre surgery nurse liaison [phone] if any additional questions.
[2024-12-27] VITALS (7 sets, daily range): BP systolic 126–136; BP diastolic 72–86; PULSE 78–92; RESP 12–16; TEMP 36.4–36.7; O2SAT 100
--- NOTE | ~2024-12-27 | XR_ITS ---
EXAMINATION: XR fluoroscopy no charge DATE: 12/27/2024 11:54 INDICATION: Right-sided renal stone removal TECHNIQUE: 4 fluoroscopic images of the abdomen and pelvis were obtained procedure performed by Dr. Samaniego. Radiologist was not present for the imaging or procedure. The amount of fluoroscopy time used during this procedure was 0.2 minutes. The dose area product was 0.233 mGym^2. COMPARISON: None. FINDINGS: Couple phleboliths in the inferior left and right pelvis. No definitive renal stones identified on the digital sales planner images. IMPRESSION: 1. Fluoroscopy utilized during urologic procedure. See procedure note for further detail. Reviewed, dictated and finalized at location A. IMPRESSION: 1. Fluoroscopy utilized during urologic procedure. See procedure note for furth er detail.
--- OUTSIDE RECORDS SUMMARY | 2024-12-27 00:57 | XMS_ITS | Clinical Summary ---
Author Organization [facility] Address [address] [place] [address] Care Team Providers Care Research Project Coordinator Name Role Phone Mary Cruz MD Primary Care Provider [phone] Allergies No known active allergies Medications venlafaxine [...] Insurance [employer] Care Teams Research Project Coordinator Relationship Specialty Start Date End Date Mary Cruz MD PCP - General 02/07/14
--- OUTSIDE RECORDS SUMMARY | 2024-12-27 00:57 | XMS_ITS | Clinical Summary ---
Author Organization [facility] Address [address] [place] [address] Care Team Providers Care Borough Coordinator Name Role Phone Mary Cruz MD Primary Care Provider [phone] Dasia Mann MD Unavailable Allergies No known [...] - 12/09/2024 11:59 PM CDT Hospital Encounter [facility] [address] [place] [address] Hematuria, unspecified type Discharge Disposition: Discharge to home or self care 12/03/2024 2:21 PM CDT - 12/03/2024 11:59 PM CDT Hospital Encounter [facility] Pain [facility]mt [address] [place] [address] Dasia Mann MD Bulge of lumbar disc without myelopathy (Primary Dx); Neural foraminal stenosis of lumbar spine; Radiculopathy, lumbar region Discharge Disposition: Discharge to home or self care 11/01/2024 3:53 PM CDT - 11/01/2024 11:59 PM CDT Hospital Encounter [facility] MRI [address] [place] [address] Radiculopathy, lumbar region Discharge Disposition: Discharge to home or self care 10/08/2024 10:38 AM CDT - 10/08/2024 11:59 PM CDT Hospital Encounter [facility] Breast Imaging [address] [place] [address] Encounter for screening mammogram for [...] on file Legal Sex Female 2:14 AM [employer] Gender Identity Not on file Sexual Orientation [...] Clarence Mendez M.D. KT: HAZEL Report ID: [id number] Reading Location: [id number] Procedure Note Clarence Mendez MD - 12/09/2024 [...] Clarence Mendez M.D. KT: HAZEL Report ID: [id number] Reading Location: [place] [address] us Farida Disla BREAD ICER IMG CT PROCEDURES Final Result * MRI [...] 1. Lumbar spine nomenclature as above. 2. Cuvq-rk-zhntnneh lumbar degenerative changes as described. There is no high-grade spinal canal stenosis. 3. Lateral recess narrowing is most noticeable on the left at L5-S1. 4. Neural foraminal stenosis and additional findings as discussed. THIS IS AN ELECTRONICALLY VERIFIED FINAL REPORT 11/04/2024 7:52 AM - Electronically signed by Art Mcarthur D.O. AP T: Report ID: [id number] Reading Location: [place] [address] Procedure Note Art Mcarthur, DO - 11/04/2024 [...] 1. Lumbar spine nomenclature as above. 2. Accq-de-kaghmdkf lumbar degenerative changes as described. There isno high-grade spinal canal stenosis. 3. Lateral recess narrowing is most noticeable on the left at L5-S1. 4. Neural foraminal stenosis and additional findings as discussed. THIS IS AN ELECTRONICALLY VERIFIED FINAL REPORT 11/04/2024 7:52 AM - Electronically signed by Art ANG T: Report ID: [id number] Reading Location: [id number] Mary Cruz MD IMG MRI PROCEDURES Final [...] Res ult from Last 3 Months Insurance [facility] [employer] [employer] [facility] [employer] Care Teams Borough Coordinator Relationship Specialty Start Date End Date Mary Cruz MD [address] [address] PCP - General Family Medicine 10/01/18 Dasia Mann MD [address] [facility] [address] [place] [address] Consulting Physician Pain Management 12/03/24
--- OUTSIDE RECORDS SUMMARY | 2024-12-27 00:57 | XMS_ITS | Patient Health Record ---
Author Organization [facility] Address [address] [place] [address] Care Team Providers Care Stonemason Name Role Phone Nancy ARRIETA, Mary Primary Care Provider Niyah KIM MD, DAVID Unavailable [phone] Reason For Referral No Information Plan Of Treatment No Information Insurance Providers Payer Name Payer Address Payer Phone Subscriber Number Group Number Insured Name Patient Relationship to Insured Coverage Start Date Coverage End Date [facility] [address] [address] [place] [address] [id number] Snehal Guevara Self - patient is the insured
--- NOTE | 2024-12-27 07:03 | PM.HPGS ---
History of Present Illness History of Present Illness Consent: Risks, benefits, and alternatives have been discussed and questions answered. Patient agrees to proceed with procedure. Chief complaint: Right ureteral stone Narrative: Snehal Guevara is a 49 year old female: (Kathie Hermosillo [facility]; 12/26/2024 2:25 PM) The patient is a 49 year old female who presents for evaluation of a ureteral stone. Note for Ureteral stone - TLB: :: :: 12/26/2024 Ms. Hartley is a 49-year-old female presenting for her first office visit for evaluation of right renal and ureteral stones. She was diagnosed via a CT scan on 12/09/2024 after presenting to her primary care provider with pain and hematuria. She has been on a trial of passage with tamsulosin for approximately two weeks and has not passed the stone to her knowledge. She has no prior history of kidney stones, recurrent urinary tract infections, or family history of stones. She denies being on any blood thinners or aspirin. This is her first visit with a urologist. PERTINENT LABS: - 12/26/2024 - Urinalysis negative for blood and infection - 12/05/2024 - Urine culture negative for infection PERTINENT IMAGING: - 12/09/2024 CT Abdomen/Pelvis with contrast ([facility]) - 6 mm right distal ureteral stone. 3 mm nonobstructing right renal stone. No hydronephrosis. 4.4cm x 3.3cm septated cystic lesion on the left ovary. Review of Systems Cardiovascular: Cardiovascular: Denies chest pain, Denies lightheadedness, Denies palpitations and Denies dyspnea Respiratory: Respiratory: Denies dyspnea Gastrointestinal: Gastrointestinal: Denies diarrhea, Denies nausea and Denies vomiting Genitourinary: Genitourinary: Denies hematuria and Denies dysuria Endocrine: Endocrine: Denies palpitations [facility] Past Medical History Medical History (Updated 12/27/24 @ 07:04 by Kevin Samaniego MD) Hypertension Anxiety Social History Social History Smoking status: Never smoker Second hand tobacco smoke exposure: No Alcohol intake: current Living arrangements: with family Spiritual care concerns: No Meds Home Medications and Allergies Home Medications ?Medication ?Instructions ?Recorded ?Confirmed ?Type acetaminophen 300 mg-codeine 30 mg 1 tablet PO Q6H PRN pain 12/23/24 12/26/24 History tablet tamsulosin 0.4 mg capsule 0.4 mg PO HS 12/23/24 12/26/24 History Allergies Allergy/AdvReac Type Severity Reaction Status Date / Time No Known Allergies Allergy Verified 12/26/24 16:30 Exam Const: General: no acute distress Resp: Effort & Inspection: normal respiratory effort GI: Inspection: non-distended GI Palp: No abdominal tenderness and No Guarding due to palpation present (GI) Auscultation: normal bowel sounds Assessment and Plan Assessment and plan (1) Right ureteral stone: Code(s): N20.1 - Calculus of ureter Status: Acute Assessment and Plan: Cystoscopy, right ureteroscopy with stone extraction, possible laser lithotripsy, retrograde pyelogram right ureteral stent placement
--- NOTE | 2024-12-27 07:05 | WPDHPUPDATE1 ---
History and Physical Update Update Date/Time: 12/27/24 07:05 History and Physical has been reviewed, including an updated exam of the patient. There are NO changes in the patient's condition. Risks, benefits, and alternatives have been discussed and questions answered. Patient agrees to proceed with procedure.
--- NOTE | 2024-12-27 09:49 | P.PNAN_ITS ---
Anes - Initial Pre Proc Eval Procedure: Operation Date: 12/27/24 11:15 Proposed Procedures p Cystoscopy, Right Ureteroscopy, Stone Extraction, Possible Laser Lithotripsy, Possible Right Retrograde Pyelogram, Possible Right Ureteral Stent Placement - Kevin Samaniego MD Date/Time: 12/27/24 09:49 Surgeon: Kevin Samaniego MD Pre Op Diagnosis: Right ureteral stone Patient Data Age: 49 Gender: F Height: Weight: 104.5 kg Allergies Allergy/AdvReac Type Severity Reaction Status Date / Time No Known Allergies Allergy Verified 12/26/24 16:30 Home Medications ?Medication ?Instructions ?Recorded ?Confirmed ?Type acetaminophen 300 mg-codeine 30 mg 1 tablet PO Q6H PRN pain 12/23/24 12/26/24 History tablet tamsulosin 0.4 mg capsule 0.4 mg PO HS 12/23/24 History Patient hx anesthesia problems: none Family hx anesthesia problems: none Results Review: All pre-operative results and documents have been reviewed as part of the pre- operative evaluation. [facility] Past Medical History Medical History Hypertension Anxiety Social History Social History Smoking status: Never smoker Second hand tobacco smoke exposure: No Alcohol intake: current Living arrangements: with family Spiritual care concerns: No Anes - Eval Final PreProcedure Day of Procedure 12/27/24 09:49 Patient weight: normal Heart: regular rate and rhythm Lungs: clear to auscultation Airway: Mallampati scale class II Neurological: alert and oriented Last oral intake: >/= 8 hours ASA classification: II Emergent: no Anesthetic plan: proceed Anesthesia type and monitoring: general GIVS and standard monitoring Results Review: All pre-operative results and documents have been reviewed as part of the pre- operative evaluation. Informed Consent: The patient's anesthetic plan and its attendant risks and benefits were discussed with the patient/family/POA. Questions were solicited and answers provided to the satisfaction of the patient/family/POA.
[2024-12-27] MEDS: LACTATED RINGERS 1,000 ML 30 ML IV CONT ×2 (10:17→11:52)
[2024-12-27] MEDS: ceFAZolin 2 GM in SODIUM CHLORIDE 0.9% IV 50 ML 100 ML IVPB (11:07)
--- NOTE | 2024-12-27 11:56 | S_PTH ---
PATIENT: Snehal Guevara LOC: [facility] U#:[id number] AGE/SX: 49/F ROOM: RE12/27/[address]: Kevin Samaniego MD : 1975 BED: DIS: 12/27/2024 SPEC #: [id number] RECD: 12/27/24 12:53 STATUS: AARON REQ #: [id number] XIAO: 12/27/24 11:[address]: Kevin Samaniego DEPT: [facility] Surgical RECD BY: Charlotte Billingsley ENTERED: 12/27/24 12:53 SP TYPE: Surgical OTHR DR: Mary Cruz, Tissues: A - Stone Procedures: Gross Exam Level 1 Crystalline Analysis
[2024-12-27] MEDS: oxyCODONE HCL (*CRX) 5 MG TAB IR PO (13:04)
--- NOTE | 2024-12-27 13:06 | W.PM.PROC2 ---
Procedure Note - Detailed Date of Procedure 12/27/24 Pre-op Diagnosis Right ureteral stone Post-op Diagnosis Same Procedure Performed Cystoscopy, right ureteroscopy with laser lithotripsy and stone extraction Surgeon Kevin Samaniego MD Anesthesia General Description of Procedure Patient is brought to the operative suite where she has prepped draped in routine sterile fashion while in dorsal lithotomy position after the uneventful induction of a general LMA anesthetic. Cystoscopy was undertaken with a 19 F rigid cystoscope. Bladder neck and urethra endoscopically normal. Bladder mucosa is shows no hyperemia. There is no intravesical foreign body or neoplasm. 0.035 in glidewire is advanced into her solitary right ureteral orifice. Distal ureter was dilated with an 8 F 10 F dilator. Ureteroscopy was undertaken with a short tapered semi-rigid ureteral scope. Distal ureteral stone is just large to require lithotripsy prior to extraction. Using a 200 micron Jero laser fiber I fractured into 3 pieces all of which were removed with ease. Because of the ease of this manipulation after not to place ureteral stent. Scopes & wires were removed and she was taken recovery room good condition. Drains No Pathology Yes
== END 2024-12-27 13:33 | disposition home or self-care (01) ==
PROVIDERS: PCP Family Medicine; Visit Provider Urology
PROC: (CPT 52352; principal; 2024-12-27 11:15)
DX: N20.1 Calculus of ureter (principal)
CPT/HCPCS: 52353; 82365; 88300; 99199; J0690; A9270; C1769; J3010; J7120

== ENCOUNTER 2025-01-02 01:11 | Day surgery (SDC) | payer OTHER, SELFPAY ==
--- OUTSIDE RECORDS SUMMARY | 2023-12-01 02:30 | XMS_ITS ---
Author Organization [facility] Address [address] [place] [address] Care Team Providers Care Janitor Caretaker Name Role Phone Nancy ARRIETA, Mary Primary Care Provider Unavaildonald KIM MD, DAVID Unavailable REASON FOR VISIT Colon Encounters Encounter Location Date Provider Diagnosis [facility] [address] [place] [address] 12/01/2023 DAVID KIM Plan Of Treatment No Information Progress Notes * JAVIER GregoryBereniceB:1975 (49 yo F)Acc No.[id number]:12/01/2023 Patient: Snehal DIXON Provider: Bertram Kim MD, FASGE :1975 A ge:48 Y S ex:Female Date:12/01/2023 [facility]: [facility] Pcp:Mary Cruz MD * * Electronic signature of DREAD KIM MD, MD on 01/02/2025 at 05:07 PM EST Sign off status: Pending * Provider: Bertram Kim MD, FASGE Date: Generated for Katia trotter/Steven/Tylersmitting on: 03/04/2024 05:07 PM EST
[2024-12-23 10:27] VITALS: BMI 32.5
--- NOTE | 2024-12-23 10:28 | PC.NURSE ---
[facility] has started construction of its new state of the art ER which will open Spring 2026. With this, we anticipate parking may be a challenge for some our surgical patients and families. Parking spaces are limited but are available for all Surgical, obstetrics, and ER patients sharing this lot. If you arrive and find you are having a hard time finding a parking space, please note that we understand the challenges, please drive around the hospital and park near Hospital Entrance 1. When you enter this entrance, you can ask a volunteer to direct or take you back to the surgical waiting area to check in. We appreciate everyone?s understanding of these expected challenges while we build for your future. Report to the Outpatient Waiting Room, entrance under the green pavilion located off [address], at time _0600_ on date _[id number]_. Planned Procedure Time: _0730_.? Time changes happen often and if your time is changed the preop area will call you the afternoon before. - You and your visitor will be asked to self-screen and do not enter if you have any COVID symptoms. Please call surgeon if you need to reschedule. - A mask is optional within the hospital at this time. Patients may have clear liquids (water, carbonated beverages, clear teas, apple juice) until 3 hours prior to surgery with a maximum of 20 ounces. - No food from midnight until time of surgery and no smoking, or chewing tobacco (or any form of nicotine). No chewing gum, candy or mints. Take only the following medications with a SIP of water on the morning of surgery: __Tylenol with codiene if needed for pain.____ DO NOT STOP ANY OF YOUR OTHER PRESCRIPTION MEDICATIONS PRIOR TO SURGERY EXCEPT THE FOLLOWING Hold all vitamins and supplements for 3 days per anesthesiologist. Medications to discontinue per physician Date to take last dose Please no make-up, nail persian, hairspray, perfume, deodorant, or body powder the day of surgery.? No jewelry (including any body piercings) or valuables the day of surgery, leave them at home.? Please take a shower or bath the night before, or the morning of, surgery with an antibacterial soap.? Wear comfortable, loose fitting clothing. - Jewelry must be removed prior to entering the operating room.? Rings and piercings that are not removed may be cut off. - The hospital will not accept responsibility for valuables.? - Please leave all valuables, including medications, at home the day of surgery. If you are going home after surgery, a licensed pile driver must drive you home.? - NO public transportation without another adult if you receive anesthesia. - We recommend that an adult stay with you for 24 hours following discharge. - We also recommend that you do not drive, make important decision, drink alcoholic beverages, or take any drugs that were not prescribed by your health care provider for at least 24 hours after your discharge time. Follow any additional instructions given to you from your surgeon. Telephone instructions given to __Snehal__and asked if any additional questions and then verbalized understanding. Patient advised to call surgeon office or pre surgery nurse liaison [phone] if any additional questions.
--- NOTE | 2025-01-01 07:56 | PM.IMHP ---
H&P: HPI History of Present Illness Date/Time: 01/01/25 07:56 Chief Complaint: Complex left ovarian cyst Narrative: This is a 49-year-old female admitted for cystectomy possible left salpingo-oophorectomy secondary to complex left ovarian cyst. She is status post hysterectomy and tubal ligation has a history of endometriosis she has had pain discomfort dyspareunia risks and benefits reviewed including exclusive of , aspiration, bleeding, transfusion, perforation injury to bowel, bladder, ureters, or other internal organs with need for open laparotomy. She received the ACOG handout entitled laparoscopy. She had all questions answered. She asked to proceed. Review of Systems Cardiovascular: Cardiovascular: Denies chest pain, Denies lightheadedness, Denies palpitations and Denies dyspnea Respiratory: Respiratory: Denies dyspnea Gastrointestinal: Gastrointestinal: Denies diarrhea, Denies nausea and Denies vomiting Genitourinary: Genitourinary: Denies hematuria and Denies dysuria Endocrine: Endocrine: Denies palpitations [facility] Past Medical History Medical History Hypertension Anxiety Social History Social History Smoking status: Never smoker Second hand tobacco smoke exposure: No Alcohol intake: current Living arrangements: with family Spiritual care concerns: No Meds Home Medications and Allergies Home Medications ?Medication ?Instructions ?Recorded ?Confirmed ?Type acetaminophen 300 mg-codeine 30 mg 1 tablet PO Q6H PRN pain 12/23/24 12/26/24 History tablet tamsulosin 0.4 mg capsule 0.4 mg PO HS 12/23/24 12/26/24 History hydrocodone 5 mg-acetaminophen 325 1 - 2 tablet PO Q6H PRN pain #10 12/27/24 Rx mg tablet tabs ketorolac 10 mg tablet 10 mg PO Q6H 5 days #20 tabs 12/27/24 Rx Allergies Allergy/AdvReac Type Severity Reaction Status Date / Time No Known Allergies Allergy Verified 12/27/24 10:17 Exam Const: General: cooperative, healthy appearing, comfortable and overweight Orientation/consciousness: oriented to person, oriented to place and oriented to time Resp: Effort & Inspection: normal respiratory effort Cardio: Rate: regular rate Rhythm: regular rhythm Heart sounds: S1 normal heart sound present and S2 normal heart sound present GI: Inspection: normal to inspection : External Female Exam: normal external appearance Speculum Exam - Vagina: normal appearance of the vagina Speculum Exam - Cervix: Cervix absent Bimanual exam- vagina & uterus: uterus absent Bimanual Exam- Adnexa, other: Adnexal mass present on the left tender Assessment and Plan Assessment and plan (1) Left ovarian cyst: Code(s): N83.202 - Unspecified ovarian cyst, left side Status: Acute Plan Proceed with laparoscopic left ovarian cystectomy possible left salpingo-oophorectomy
[2025-01-02] VITALS (10 sets, daily range): BP systolic 110–144; BP diastolic 59–84; PULSE 68–91; RESP 12–14; TEMP 36.2–36.3; O2SAT 94–100; BMI 33.8
--- NOTE | 2025-01-02 06:23 | WPDHPUPDATE1 ---
History and Physical Update Update Date/Time: 01/02/25 06:23 History and Physical has been reviewed, including an updated exam of the patient. There are NO changes in the patient's condition. Risks, benefits, and alternatives have been discussed and questions answered. Patient agrees to proceed with procedure.
--- NOTE | 2025-01-02 06:50 | WPDANESEPPF ---
Anes - Initial Pre Proc Eval Procedure: Operation Date: 01/02/25 07:30 Proposed Procedures p Laparoscopy Left Ovarian Cystectomy - Ayden Andrade MD Date/Time: 01/02/25 06:50 Surgeon: Ayden Andrade MD Pre Op Diagnosis: lt ovarian cyst, pelvic pain Patient Data Age: 49 Gender: F Height: 1.75 m Weight: 100 kg Allergies Allergy/AdvReac Type Severity Reaction Status Date / Time No Known Allergies Allergy Verified 01/02/25 06:47 Home Medications ?Medication ?Instructions ?Recorded ?Confirmed ?Type acetaminophen 300 mg-codeine 30 mg 1 tablet PO Q6H PRN pain 12/23/24 12/26/24 History tablet tamsulosin 0.4 mg capsule 0.4 mg PO HS 12/23/24 12/26/24 History hydrocodone 5 mg-acetaminophen 325 1 - 2 tablet PO Q6H PRN pain #10 12/27/24 Rx mg tablet tabs ketorolac 10 mg tablet 10 mg PO Q6H 5 days #20 tabs 12/27/24 Rx Patient hx anesthesia problems: none Family hx anesthesia problems: none Results Review: All pre-operative results and documents have been reviewed as part of the pre-operative evaluation. [facility] Past Medical History Medical History Hypertension Anxiety Social History Social History Smoking status: Never smoker Second hand tobacco smoke exposure: No Alcohol intake: current Living arrangements: with family Spiritual care concerns: No Anes - Eval Final PreProcedure Day of Procedure 01/02/25 06:50 Patient weight: obese Heart: regular rate and rhythm Lungs: clear to auscultation Airway: Mallampati scale class II Neurological: alert and oriented Last oral intake: >/= 8 hours ASA classification: II Emergent: no Anesthetic plan: proceed Anesthesia type and monitoring: general ETT and standard monitoring Results Review: All pre-operative results and documents have been reviewed as part of the pre-operative evaluation. Informed Consent: The patient's anesthetic plan and its attendant risks and benefits were discussed with the patient/family/POA. Questions were solicited and answers provided to the satisfaction of the patient/family/POA.
[2025-01-02] MEDS: ACETAMINOPHEN 500 MG TABLET 1000 MG PO (06:52)
[2025-01-02] MEDS: LACTATED RINGERS 1,000 ML 30 ML IV CONT ×2 (06:52→09:10)
[2025-01-02] MEDS: KETOROLAC 15 MG/ML VIAL (*BKC) IV PUSH (06:52)
--- NOTE | 2025-01-02 07:55 | S_PTH ---
PATIENT: Snehal Guevara LOC: [facility] U#:[id number] AGE/SX: 49/F ROOM: RE01/02/[address]: Ayden Andrade MD : 1975 BED: DIS: 01/02/2025 SPEC #: [id number] RECD: 01/02/25 10:09 STATUS: AARON RE #: [id number] XIAO: 01/02/25 07:[address]: Ayden Biggs DEPT: [facility] Surgical RECD BY: Charlotte Billingsley ENTERED: 01/02/25 10:10 SP TYPE: Surgical OTHR DR: Mary CruzMD Tissues: A - Ovary Procedures: Hematoxylin and Eosin Stain Gross and Microscopic Level 4
--- NOTE | 2025-01-02 08:03 | W.PM.PROC2 ---
Procedure Note - Detailed Date of Procedure 01/02/25 Pre-op Diagnosis lt ovarian cyst, pelvic pain Post-op Diagnosis Same Procedure Performed Laparoscopy with left oophorectomy and lysis of adhesions Surgeon Ayden Andrade MD Anesthesia General Indications 29-year-old female status post hysterectomy with pelvic pain and complex left ovarian cyst Findings Uterus and cervix were absent. Multiple adhesions bowel to the vaginal cuff into the left lateral sidewall complex left cyst that appeared nature. Right tubes were absent bilaterally Description of Procedure Patient was prepped and draped in the normal sterile fashion placed dorsal position. Excellent trach anesthesia a sponge stick was placed in vagina and the bladder emptied of about 2cc of clear urine. The weighted speculum gloves were changed. A supraumbilical incision made the Veress needle in the with CO2 to of mercury. Five trocar advanced direct visualization assuring injury no injury seen patient was placed in Trendelenburg and a suprapubic incision made. The 5 trocar advanced under direct visualization assuring the adhesions were noted. And the a left lower quadrant incision made 10 trocar advanced assuring using the LigaSure these were sharply dissected by burning cutting until clear complex left ovarian cyst was skeletonized cyst infundibulopelvic structure clamped burned and cut this was placed in an Endo-Catch removed through left lower irrigation undertaken until clear and hemostasis was assured. No other abnormalities were seen. Lower site. The gas removed. The upper site the incisions closed with 4 Monocryl glue. Patient was awakened went to recovery in satisfactory condition. All sponge, needle, instrument counts were correct. There were no immediate complications Estimated Blood Loss 5 Drains No Packing No Pathology Yes Complications No immediate complications Condition Stable Disposition PACU
[2025-01-02] MEDS: fentaNYL CITRATE INJ (*CRX) 100 MCG/2 ML VIAL 25 MCG IV PUSH ×6 (08:30→09:00)
[2025-01-02] MEDS: HYDROmorphone HCL INJ (*CRX) 1 MG/ML SYR 0.5 MG IV PUSH ×4 (09:09→09:26)
[2025-01-02] MEDS: oxyCODONE HCL (*CRX) 5 MG TAB IR PO (09:45)
--- OUTSIDE RECORDS SUMMARY | 2025-01-02 16:08 | XMS_ITS | Clinical Summary ---
Author Organization [facility] Address [address] [place] [address] Care Team Providers Care Power Lineman Name Role Phone Mary Cruz MD Primary Care Provider [phone] Allergies No known active allergies Medications venlafaxine [...] patient's age to complete this topic Insurance 13 [facility] [place] [id number] [facility] [employer] Care Teams Power Lineman Relationship Specialty Start Date End Date Mary Cruz MD PCP - General 02/07/14
--- OUTSIDE RECORDS SUMMARY | 2025-01-02 16:08 | XMS_ITS | Patient Health Record ---
Author Organization [facility] Address [address] [place] [address] Care Team Providers Care Head Of Business Development Name Role Phone Nancy ARRIETA, Mary Primary Care Provider Niyah KIM MD, DAVID Unavailable Reason For Referral No Information Plan Of Treatment No Information Insurance Providers Payer Name Payer Address Payer Phone Subscriber Number Group Number Insured Name Patient Relationship to Insured Coverage Start Date Coverage End Date [facility] [employer] [address] [address] [place] [address] [phone] [id number] Snehal Guevara Self - patient is the insured
--- OUTSIDE RECORDS SUMMARY | 2025-01-02 16:08 | XMS_ITS | Clinical Summary ---
Author Organization [facility] Address [address] [place] [id number] Care Team Providers Care Evaporator Operator Name Role Phone Mary Cruz MD Primary Care Provider [phone] Dasia Mann MD Unavailable Allergies No known [...] 12/09/2024 11:59 PM CDT Hospital Encounter [facility] [address] [place] [address] Hematuria, unspecified type Discharge Disposition: Discharge to home or self care 12/03/2024 2:21 PM CDT - 12/03/2024 11:59 PM CDT Hospital Encounter [facility] Pain [facility]mt [address] [place] [address] Dasia Mann MD Bulge of lumbar disc without myelopathy (Primary Dx); Neural foraminal stenosis of lumbar spine; Radiculopathy, lumbar region Discharge Disposition: Discharge to home or self care 11/01/2024 3:53 PM CDT - 11/01/2024 11:59 PM CDT Hospital Encounter [facility] MRI [address] [place] [address] Radiculopathy, lumbar region Discharge Disposition: Discharge to home or self care 10/08/2024 10:38 AM CDT - 10/08/2024 11:59 PM CDT Hospital Encounter 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 KT: HAZEL Report ID: [id number] Reading Location: [id number] Procedure Note Clarence Mendez MD - 12/09/2024 [...] Clarence Mendez M.D. KT: HAZEL Report ID: [id number] Reading Location: [place] [address] us Farida Disla APARTMENT MANAGER IMG CT PROCEDURES Final Result * MRI [...] 1. Lumbar spine nomenclature as above. 2. Wswx-jx-zviihgst lumbar degenerative changes as described. There is no high-grade spinal canal stenosis. 3. Lateral recess narrowing is most noticeable on the left at L5-S1. 4. Neural foraminal stenosis and additional findings as discussed. THIS IS AN ELECTRONICALLY VERIFIED FINAL REPORT 11/04/2024 7:52 AM - Electronically signed by Art Mcarthur D.O. AP T: Report ID: [id number] Reading Location: [place] [address] Procedure Note Art Mcarthur, DO - 11/04/2024 [...] 1. Lumbar spine nomenclature as above. 2. Itnb-cd-wmygkdix lumbar degenerative changes as described. There isno high-grade spinal canal stenosis. 3. Lateral recess narrowing is most noticeable on the left at L5-S1. 4. Neural foraminal stenosis and additional findings as discussed. THIS IS AN ELECTRONICALLY VERIFIED FINAL REPORT 11/04/2024 7:52 AM - Electronically signed by Art ANG T: Report ID: [id number] Reading Location: [id number] Mary Cruz MD IMG MRI PROCEDURES Final [...] Res ult from Last 3 Months Insurance [facility] [place] [address] [employer] [facility] CHO[facility] PLUS [facility] CHO[facility] PLUS Care Teams Evaporator Operator Relationship Specialty Start Date End Date Mary Cruz MD [address] [address] PCP - General Family Medicine 10/01/18 Dasia Mann MD [address] [facility] SONY [address] [place] [address] Consulting Physician Pain Management 12/03/24
--- OUTSIDE RECORDS SUMMARY | 2025-01-02 16:08 | XMS_ITS | Data Portability ---
Author Organization [facility] Address [address] [place] [address] Assessment No assessment recorded. Plan of Treatment Reminders Order Date Submit Date Provider Last Modified By Organization Details Last Modified Time Details Appointments None recorded. Lab PPD (purified protein derivative) , skin test 2015 016 anashPerlita In-Office Order, Internal Use Only DO Not Attach Compendium DO Not Attach Compendium, Do Not Delete/merge, [id number] 6 16:06:49 HIV (1+2) Ab, rapid, unspecified specimen 2015 016 [email or web address] In-Office Order, Internal Use Only DO Not Attach Compendium DO Not Attach Compendium, Do Not Delete/merge, [id number] 6 17:37:39 mononucleos is, heterophile Ab, blood 2015 016 eleni [facility], [address], [address], [place], [address], 6 17:37:39 CT + NG DNA, PCR, unspecified specimen 2015 016 [facility], [address], [address], [place], [address], 6 10:36:26 HPV E6+E7 mRNA, qualitative PCR, cervix 2015 016 [facility], [address], [address], [place], [address], 6 08:44:53 rapid strep group A, throat 2015 016 [facility], [address] [facility], [address], [place], [address], 6 12:09:47 BMP, blood 2014 015 [facility], [address] [place] [address], [address], [place], [address], 5 13:10:38 glycohemogl obin, total, blood 2014 015 [facility], [address] [place] [address], [address], [place], [address], 5 13:10:38 lipid panel, blood 2014 015 [facility], [address] [place] [address], [address], [place], [address], 5 13:10:38 Referral None recorded. Procedures None recorded. Surgeries None recorded. Imaging None recorded. Medication Orders Tubersol 5 tub. unit/0.1 mL intradermal injection solution 2015 016 thulsema Not available 6 15:03:18 lidocaine HCl 2 % mucosal solution 2015 016 [email or web address] Not available 6 16:32:43 Mobic 7.5 mg tablet 2014 015 hliptak Not available 6 16:49:28 baclofen 10 mg tablet 2014 015 hliptak Not available 6 16:49:28 cyclobenzap rine 10 mg tablet 2014 015 hliptak Not available 6 16:49:28 Patient TargetsNo targets recorded. Patient Instructions Encounter Date Encounter Id Patient Instructions Last Modified By Organization Details Last Modified Time 08/08/2014 [id number] I was present an d available in the Family Medicine clinic to discuss this patient's care during the appointment. I agree with the resident's assessment and plan as documented. Sidney Dominique D.O. [email or web address] Not available 09/24/2014 13:10:38 10/16/2014 [id number] I was present an d available in the Family Medicine clinic to discuss this patient's care during the appointment. I agree with the resident's assessment and plan as documented. Not available 10/22/2014 18:04:26 03/31/2015 [id number] sore throat: car e instructions Not available 04/08/2015 16:32:43 I was present an d available in the Family Medicine clinic to discuss this patient's care during the appointment. I agree with the resident's assessment and plan as documented. Not available 04/08/2015 16:32:43 04/09/2015 [id number] I was present an d available in the Family Medicine clinic to discuss this patient's care during the appointment. I agree with the resident's assessment and plan as documented. tkearney Not available 04/09/2015 17:37:40 10/23/2015 [id number] tuberculin skin test: care instructions thulsema Not available 10/26/2015 15:03:19 Reason for Referral None Reported. Results Created Date Observation Date Name Description Value Unit Range Abnormal Flag Note LastModifiedBy Organization Detail LastModifiedTime 10/26/19 16 10/26/2015 PPD (la nena fied prote in deriv ative ), skin test Result Negati ve Not Available In-Office Order Internal Use Only DO Not Attach Compendium DO Not Attach Compendium, Do Not Delete/merge, [id number] 10/26/2015 15:03:19 04/09/19 16 04/09/2015 HIV (1+2) Ab, rapid , unspe cifie d speci men Rapid HIV negati ve Not Available In-Office Order Internal Use Only DO Not Attach Compendium DO Not Attach Compendium, Do Not Delete/merge, [id number] 04/09/2015 16:31:51 03/31/19 16 03/31/2015 rapid strep group A, throa t strep gp A Ag, ia w/reflex NEGATI VE negati ve Not Available [facility] ([facility]) [address] [place], [address], 03/31/2015 14:36:23 03/31/19 16 03/31/2015 rapid strep group A, throa t beta strep gp A culture TNP TEST NOT PERFO RMED Not Available [facility] ([facility]) [address] [place], [address], 03/31/2015 14:36:23 03/31/19 16 04/02/2015 strep tococ cus sp, beta- hemol ytic, cultu re, unspe cifie d speci men beta strep gp A culture NEGATI VE Not Available [facility] ([facility]) [address] [place], [address], 04/03/2015 06:09:39 03/31/19 16 04/01/2015 rapid strep group A, throa t strep gp A Ag, ia w/reflex TNP THE SPECI MEN SUBMI TTED DOES NOT MEET THE LABOR ATORY 'S [facility]ITE [facility]IF FOR ACCEP TABIL ITY. REFER TO [facility] 'S DIREC TORY OF SERVI LAUREN FOR SPECI MEN ACCEP TABIL ITY [facility]ITE [facility]. REQUI RES: DRY SWAB RECEI TIFFANY: SWAB WITH MEDIA Not Available [facility] ([facility]) [address] [place], [address], 04/03/2015 06:09:39 03/31/19 16 04/01/2015 speci men statu s repor t specimen status report TNP THE SPECI MEN SUBMI TTED DOES NOT MEET THE LABOR ATORY 'S [facility] FOR ACCEP TABIL ITY. [facility] FOR SPECI MEN ACCEP TABIL ITY [place]ITE [place]. TEST: 11712 5 STREP GP A AG, IA W/REF DEE REQUI RES: DRY SWAB RECEI TIFFANY: SWAB WITH MEDIA Not Available [facility] ([facility]) [address] [facility], [place], [address], 04/03/2015 06:09:40 04/09/19 16 04/10/2015 heter ophil e Ab, quali tativ e latex agglu tinat ion, serum mononucleosi s test, qual NEGATI VE negati ve THE SENSI TIVIT Y OF HETER OPHIL E ANTIB LUCRECIA TESTI NG IS 80-90 %. EPSTE IN AVILA IGM TESTI NG OFFER S HIGHE R SENSI TIVIT Y. Not Available [facility] ([facility]) [address] [facility], [place], [address], 04/10/2015 10:42:37 04/09/19 16 04/09/2015 CT + NG DNA, PCR, unspe cifie d speci men please note: COMMEN T ACCEP TABLE SPECI MENS FOR THIS TEST ARE MALE URETH RAL SWAB, ENDOC ERVIC AL SWAB AND LIQUI D BASED PAP SPECI MENS, VAGIN AL SWABS IN APTIM A TRANS PORTS AND FIRST VOID URINE . SEE HILLARY GALDAMEZ OF SERVI LAUREN FOR TEST NUMBE R FOR RECTA L AND PHARY NGEAL SPECI MENS. Not Available [facility] ([facility]) [address] [facility], [place], [address], 04/13/2015 10:36:26 04/09/19 16 04/13/2015 CT + NG DNA, PCR, unspe cifie d speci men chlamydia trachomatis, YANELIS TNP NO SPECI MEN RECEI TIFFANY, PLEAS E RESUB JUAN DIEGO. Not Available [facility] ([facility]) [address] [facility], [place], [address], 04/13/2015 10:36:26 04/09/19 16 04/13/2015 CT + NG DNA, PCR, unspe cifie d speci men neisseria gonorrhoeae, YANELIS TNP TEST NOT PERFO RMED Not Available [facility] ([facility]) [address] [facility], [place], [address], 04/13/2015 10:36:26 04/09/19 16 04/13/[address] probl em request problem TNP NO SPECI MEN RECEI TIFFANY, TIN Phelan RESUB JUAN DIEGO. TEST: [id number] 4 CHLAM YDIA/ GC AMPLI FICAT ION Not Available [facility] ([facility]) [address] [facility], [place], [address], 04/13/2015 10:36:27 04/09/19 16 04/10/[address] probl em request problem TNP PLEAS E REFER TO THE FOLLO WING SPECI MEN FOR ADDIT IONAL LAB RESUL TS. TEST: 63076 0 HPV APTIM A SEE 042-3 36-07 65-0 Not Available [facility] ([facility]) [address] [facility], [place], [address], 04/13/2015 10:36:28 04/09/19 16 04/13/2015 verba l order see below: COMMEN T: THE [place] STATE S CODE OF DEBBY AL REGUL ATION S REQUI RES A WRITT EN AND EMELIA D REQUE ST BE FORWA RDED TO A LABOR ATORY FOLLO WING A VERBA L ORDER OF A LABOR ATORY TEST. TIN Phelan TAVO T US TO MEET THIS REQUI KAILAEN T AND TO COMPL ETE OUR RECOR DS. DATE: ICD- DIAGN OSIS CODE( S):__ _ PHYSI JUDITH OR AUTHO RIZED DESIG NEE:_ _ PLEAS E PRINT PHYSI JUDITH OR AUTHO RIZED DESIG NEE SIGNA JEANNINE: YOUR SIGNA TURE CONFI SHORTY YOUR ORDER OF THE TEST( S) LISTE Mirtha PLEAS E PROVI DE REQUE STED INFOR MATIO N AND FAX TO [phone] OR [phone] 12-50 24. Not Available [facility] ([facility]) [address] [place], [address], 04/27/2015 12:17:13 04/09/19 16 04/13/2015 verba l order additional test(s) requested COMMEN T: TEST( S) ADDED PER GEORGE MULLIGAN AT ACCOU NT 04-13 LOGGE D BY MARY HAGER TEST# [id number]/GC YANELIS, PHARY NGEAL DIAGN OSIS CODES PROVI DED R59.0 Not Available [facility] ([facility]) [address] [place], [address], 04/27/2015 12:17:13 04/09/19 16 04/27/2015 verba l order verbal order COMMEN T THIS IS THE FINAL NOTIC E REQUE STING THIS INFOR MATIO N; IF WE DO NOT RECEI VE THIS INFOR MATIO N WITHI N SEVEN DAYS, THE TESTS WILL BE BILLE D TO YOUR ACCOU NT. Not Available [facility] ([facility]) [address] [facility], [place], [address], 04/27/2015 12:17:13 04/09/19 16 04/14/2015 HPV E6+E7 mRNA, quali tativ e PCR, cervi x HPV aptima NEGATI VE negati ve THIS TEST DETEC TS FOURT EEN HIGH- RISK HPV TYPES (16/1 8/31/ 33/35 /39/4 5/ 51/52 /56/5 8/59/ 66/68 ) WITHO UT DIFFE RENTI ATION . Not Available [facility] ([facility]) [address] [place], [address], 04/14/2015 08:44:53 04/09/19 16 04/15/2015 CT + NG DNA, PCR, unspe cifie d speci men C. trachomatis, YANELIS, pharyn NEGATI VE negati ve Not Available [facility] ([facility]) [address] [place], [address], 05/05/2015 12:22:18 04/09/19 16 04/15/2015 CT + NG DNA, PCR, unspe cifie d speci men N. gonorrhoeae, YANELIS, pharyn NEGATI VE negati ve Not Available [facility] ([facility]) [address] [place], [address], 05/05/2015 12:22:18 04/09/19 16 05/05/2015 writt en autho rizat ion written authorizatio n COMMEN T NO WRITT EN AUTHO RIZAT ION RECEI TIFFANY. Not Available [facility] ([facility]) [address] [place], [address], 05/05/2015 12:22:19 Result Notes None recorded. Problems Name Problem SNOMED Code Status Onset Date Resolution Date Notes Provider Name and Address Organization Details Recorded Time Neck pain 83766495 Active Sonia Lovett MD null, [place] - [facility] 6 16:08:11 Pain in throat 751436171 Active Sonia Lovett [place], [place] [facility] 6 16:08:11 Oral lesion 8910873491986 Active George Adams [place] [facility] 6 17:37:39 Lymphadenop athy 92957573 Active George Adams null, [place] - [facility] 6 17:37:39 Problem Notes None recorded. Medical Equipment None Reported. Allergies No known drug allergies Medications Name Sig Start Date Stop Date Status Note LastModified by Organization Details LastModified Time cyclobenzapr ine 10 mg tablet Take 1 tablet twice a day by oral route. 04/09 completed Not Available Not Available Not Available Tubersol 5 tub. unit/0.1 mL intradermal injection solution x1 2015 active Given by LUIS MIGUEL Cosby Not Available Not Available Not Available Mobic 7.5 mg tablet Take 1 tablet every day by oral route for 30 days. 04/09 completed Not Available Not Available Not Available penicillin V potassium 500 mg tablet Take 1 tablet twice a day by oral route for 10 days. 04/09 completed Not Available Not Available Not Available Tamiflu 75 mg capsule 04/09 completed Not Available Not Available Not Available baclofen 10 mg tablet Take 1 tablet 3 times a day by oral route for 30 days. 04/09 completed Not Available Not Available Not Available benzonatate 100 mg capsule 04/09 completed Not Available Not Available Not Available lidocaine HCl 2 % mucosal solution Take 15 mL every 3 hours by oral route as needed. 2015 active Not Available Not Available Not Avai [facility] Cheratussin AC 10 mg-100 mg/5 mL oral liquid 04/09 completed Not Available Not Available Not Available Vitals Date Recorded Body temperature Body mass index (BMI) Body height Heart rate Body weight Systolic And Diastolic Provider Name and Address Organization Details Last Updated DateTime 6 98.5 [degF] 32.3 kg/m2 170.18 cm 91 /min 25692.0 2822 g 120/82 mm[Hg] Lilo Price CMA [facility] 6 11:29:52 Date Recorded Body mass index (BMI) Heart rate Body weight Body temperature Body height Systolic And Diastolic Provider Name and Address Organization Details Last Updated DateTime 6 32.4 kg/m2 90 /min 34411.6 2059 g 97.4 [degF] 170.18 cm 116/80 mm[Hg] Lilo Price [facility] 6 15:51:37 Date Recorded Body weight Body height Body temperature Heart rate Body mass index (BMI) Systolic And Diastolic Provider Name and Address Organization Details Last Updated DateTime 5 83852.0 65056 g 169.545 cm 98.8 [degF] 63 /min 31.3 kg/m2 122/72 mm[Hg] Lor Espinal [facility] 5 14:47:59 Date Recorded Body weight Body height Body temperature Heart rate Body mass index (BMI) Systolic And Diastolic Provider Name and Address Organization Details Last Updated DateTime 5 77768.6 5874 g 169.545 cm 98.4 [degF] 72 /min 31.9 kg/m2 122/86 mm[Hg] Roxann Wilkerson [facility] 5 11:03:47 Social History None recorded. Functional Status None recorded. Mental Status None recorded. Family History Nothing Reported. Medical History No medical history recorded. Gynecological HistoryNo gynecological history recorded. Obstetrics History GPAL:G 0 P 0 0 0 0 Past Encounters Encounter ID Performer Location Encounter Start Date Encounter Closed Date Diagnosis/Indication Diagnosis SNOMED-CT Code Diagnosis ICD10 Code Diagnosis IMO Codes Diagnosis Note [id number] MD [facility] ([facility]) [address] [place] [address] 08/08/2014 14:39:07 08/11/2014 08:42:11 Neck pain 76632994 can be possibly neck strain, muscle spasm and might be inflamed muscle sheath with node or possible sebaceous cyst coming up second node seem like pos cervical LN will give muscle relaxant for neck spasm to get better follow up in one month Adult heal th examination 358257880 had pap smear last year otherwise healthy will get baseline labs since its been long time for screening DMII, lipid [id number] MD [facility] ([facility]) [address] [place] [address] 10/16/2014 10:54:10 10/16/2014 11:34:39 Spasm 04047568 pt complains of swollen lymph node in july on neck hurts to move neck on left side, unlikely malignancy or infection will give Mobic and baclofen and will follow up in 4-6 months if lymph node swells up will do ultrasound at that time. [id number] MD [facility] ([facility]) [address] [place] [address] 03/31/2015 10:34:11 04/01/2015 00:04:18 Pain in throat 843092905 R07.0 40 yo F with c/o sore throat, runny nose, post nasal drip x2days. 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 Pt denies any f/c/cp/sob . Pt reports that it hurts to swallow but she is able to drink and eat. Pt ahs taken ibuprofen at home but to no avail. -Pt's centor score=3--> rapid strep performed. Rapid strep resulted negative and pt notified of this result. Culture result pending -Lidocaine swish and spit to help with throat pain -Discussed with pt that her sxs are likely 2/2 viral etiology and would recommend treating symptomati sultana at this time. Pt conveyed understand ing and is agreeable to this plan [id number] MD [facility] ([facility]) [address] [place] [address] 04/09/2015 15:43:15 04/10/2015 03:48:02 Oral lesion 5253296301 107 K13.70 Scraped lesion for sample today, low risk for malignancy -Test for GC/CT and HPV given new sexual partner -Cont total course of amoxicilli n treatment -RTC in 1-2 weeks if not resolved and will consider referral to ENT for further biopsy/tommy l Lymphadenopathy 96345115 R59.0 Left posterior cervical chain with viral syndrome. -Rapid HIV neg -R/o mono with heterophil e Ab, no splenomega ly on exam [id number] MD [facility] ([facility]) [address] [place] [address] 10/23/2015 14:58:32 10/26/2015 12:34:33 Adult health examination 928045664 Z00.00 Health Concerns Section Related Observation LastModified by Organization Detai ls LastModified Time None Recorded Concern Status LastModified by Organization Details LastModified Time None Recorded Advance Directives Directive None Recorded Payers Insurance Date Sequence Insurance Name Policy Number Policy Dickson Covered Member ID Dickson Member ID Guarantor Name 01/06/2016 1 [facility] (MEDICAID HMO) [id number] Snehal Guevara [id number] Snehal Guevara 01/06/2016 1 [facility] (MEDICAID HMO) Snehal Guevara [id number] Snehal Guevara 01/06/2016 1 [facility] - DOS PRIOR TO 2020 (MEDICAID REPLACEMENT - HMO) Snehal Guevara [id number] Snehal Guevara Notes Date Note Type Note Provider Name and Address Organization Details Recorded Time 5 text/html Generic HPI TemplateReported by Patientpatient is here for a painful cyst at her lateral left neck. its painful and feel like pain shoots up above and below that area. she feels some muscle tightness. Also below that cyst, she also feel a node that does not cause any pain. it came couple weeks ago. sometimes hard to sleep on the same side. otherwise very healthy. no weight loss, no night sweats.ROS as noted in the HPI Sidney saunders [facility] 09/24/2014 13:10:38 5 text/html 39 y/o F presents complaining of L neck pain and a lump on her neck that has been persistent since July. She reports that her pain radiates down into her left shoulder and up into her L ear. She denies any injury or stressor to the area and reports that the pain is associated with movement of her neck specifically side bending and rotation. She denies F/C, night sweats, weight loss, swelling or erythema of the area, ear or nasal discharge, hoarseness, dysphagia, cough, abdominal pain, N/V/D, and fatigue. She was seen in July for this complaint and was given Flexeril which she does not feel improved her symptoms. She additionally has tried ice and heat with minimal relief. Felipe Cortez MD Attn: Accounting,[address] [place], [address], [facility] 10/22/2014 18:04:26 6 text/html Generic HPI TemplateReported by [email or web address] yo F with c/o sore throat, runny nose, post nasal drip x2days. 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 Pt denies any f/c/cp/sob. Pt reports that it hurts to swallow but she is able to drink and eat. Pt ahs taken ibuprofen at home but to no avail.ROS as noted in the HPI Felipe Cortez MD Attn: Accounting,[address] [place], [address], [facility] 04/08/2015 16:32:45 6 text/html Throat PainReported by PatientHPIFor associated symptoms, patient reportsodynophagia,lump in neck, andoral mucosal lesionbut reportsno stress,no coughing with sputum,no choking,no throat tickle/itch,no globus sensation,no dysphagia,no burping,no hoarseness,no neck/shoulder muscle tension,no weight loss,no loss of appetite,no fever,no dyspnea,no daytime somnolence,no ear pain,no ear infection,no nasal congestion,no postnasal drip, andno hemoptysis. For location, patient reportsright. For quality, patient reportssharp. For severity, patient reportsmoderate. For onset/timing, patient reportsabrupt. For context, patient reportsuriandcontacts with uri. For prior tests, patient reportsrapid strep. For prior treatment, patient reportsantibiotics. For duration, (8 days).Lump in left posterior cervical chain x 2-3 mosMother recently dx with mono 01/2015New sexual partner, states last HIV test was negDenies astham with ICS treatmentDenies hx of HIV/cancer/immunocompromis ed state with autoimmune diseaseDx with possible strep throat by Dr. Subramanian and has been on amoxicillin day 08/06, RADT neg but they were unable to send testing for culture to confirm so presumed infection and treatedROS as noted in the HPI George saunders, [facility] 04/09/2015 17:37:41 OBGyn Episode No OBEpisode recorded.
== END 2025-01-02 10:34 | disposition home or self-care (01) ==
PROVIDERS: PCP Family Medicine; Visit Provider Obstetrics & Gynecology
PROC: (CPT 49320; principal; 2025-01-02 07:30)
DX: N83.12 Corpus luteum cyst of left ovary (principal); D27.1 Benign neoplasm of left ovary; N73.6 Female pelvic peritoneal adhesions (postinfective); I10 Essential (primary) hypertension; F41.9 Anxiety disorder, unspecified; N80.9 Endometriosis, unspecified; E66.9 Obesity, unspecified; Z68.33 Body mass index [BMI] 33.0-33.9, adult; Z79.891 Long term (current) use of opiate analgesic; Z98.890 Other specified postprocedural states; Z98.51 Tubal ligation status
CPT/HCPCS: 58661; 88305; A9270; J1100; J1171; J1885; J2003; J2250; J2405; J2704; J3010; J7120